=== PATIENT | male | born 1945 | race Caucasian/White ===

== ENCOUNTER 2018-05-31 09:59 | Day surgery (SDC) | payer MEDICARE, OTHER ==
[2018-05-30 09:48] VITALS: BMI 31.5
[~2018-05-31 09:59] MED LIST: HYDROmorphone 0.5 MG/0.5 ML SYRINGE IVP PRN
[2018-05-31] MEDS ORDERED: LACTATED RINGERS 1,000 ML IV SCH (10:00)
[2018-05-31 10:42] VITALS: TEMP 97.8
[2018-05-31] MEDS ORDERED: LIDOCAINE 1% 20 ML VIAL (10MG/ML) FOR IV START INTRADERMA ONE (10:42)
[2018-05-31] MEDS ORDERED: LIDOCAINE 1% INJ 10MG/ML (20 ML MDV) ONE (11:44)
[2018-05-31] MEDS ORDERED: PROPOFOL 10 MG/ML 20 ML VIAL IV ONE (11:44)
--- NOTE | 2018-05-31 11:57 | P.PCN ---
Date of Procedure: 05/31/18 Procedure(s) Performed: BRIEF HISTORY: Patient is a 73-year-old, pleasant, male, scheduled for an upper endoscopy with a possible dilation as a part of value should of progressive dysphagia to solids for the last 2 years duration. He lost 60 pounds since onset of the symptoms. Recent barium esophagogram showed evidence of distal esophageal stricture.. PROCEDURE PERFORMED: Esophagogastroduodenoscopy with biopsy and balloon dilation. PREOPERATIVE DIAGNOSIS: Progressive dysphagia to solids of 2 years duration. IV sedation per anesthesia. PROCEDURE: After informed consent was obtained, the patient was brought into the endoscopy unit. IV sedation was administered by Anesthesia under continuous monitoring. Initially the Olympus GIF-140 video endoscope was inserted into the mouth. Esophagus intubated without any difficulty. It was gradually advanced into the stomach and duodenum and carefully examined. The bulb and the second part of the duodenum appeared normal. The scope at this time was withdrawn to the stomach, adequately insufflated with air, and upon careful examination, mucosa of the antrum, body, cardia and the fundus appeared normal. The scope was then withdrawn into the esophagus. The GE junction was located at 39 cm from the incisors. There was a distal esophageal stricture identified. This was dilated using 12-13.5 mm TTS balloon for 1 minute. Following this there was some mucosal oozing identified and hence further dilation was not performed. There was thickening of mucosal folds in the mid and distal esophagus and multiple biopsies were done to rule out years of age esophagitis. Rest of the esophagus appeared normal and the patient tolerated the procedure well. The esophagus appeared normal. There were no erosions or ulcerations seen and the patient tolerated the procedure well. IMPRESSION: 1. Distal esophageal stricture status post balloon dilation using 12 and 13.5 mm TTS balloon as described above. 2. Thickened distal esophageal folds status post biopsy to rule out eosinophilic esophagitis. RECOMMENDATIONS: The findings of this examination were discussed with the patient as well as his family. He was advised to be on a clear liquid diet. He will be started on Prilosec 20 mg daily. He'll be seen in the office in 4 weeks..
[2018-05-31 12:35] VITALS: BP 140/78; PULSE 82; RESP 18
== END 2018-05-31 12:45 | disposition home or self-care (01) ==
LOC: ORWHC2ENDO 09:59
PROVIDERS: ATTEND Internal Medicine Gastroenterology
DX: K22.2 Esophageal obstruction (principal); K20.0 Eosinophilic esophagitis; Z79.1 Long term (current) use of non-steroidal anti-inflammatories (NSAID); Z79.82 Long term (current) use of aspirin; G47.33 Obstructive sleep apnea (adult) (pediatric); Z87.891 Personal history of nicotine dependence
CPT/HCPCS: 88305; 43239; 43249; J2001; J2704; C1726

== ENCOUNTER 2020-01-25 11:06 | Day surgery (SDC) | payer MEDICARE, OTHER ==
[2020-01-23 13:24] VITALS: BMI 32.1
[~2020-01-25 11:06] MED LIST changes: -HYDROmorphone 0.5 MG/0.5 ML SYRINGE IVP PRN; +LACTATED RINGERS 1,000 ML IV SCH; +LIDOCAINE 1% (10MG/ML) FOR IV START INTRADERMA PRN
[2020-01-25 12:05] VITALS: TEMP 98
[2020-01-25] MEDS ORDERED: PROPOFOL 10 MG/ML 20 ML VIAL IV ONE (12:34)
[2020-01-25] MEDS ORDERED: LIDOCAINE 1% INJ 10MG/ML (20 ML MDV) ONE (12:34)
[2020-01-25] MEDS ORDERED: IV FLUID CONTINUATION 1,000 ML IV ONE (12:42)
--- NOTE | 2020-01-25 12:49 | P.PCN ---
Date of Procedure: 01/25/20 Procedure(s) Performed: BRIEF HISTORY: Patient is a 74-year-old, pleasant, male scheduled for an upper endoscopy as a part of evaluation of progressive dysphagia to solids for the last few months duration. He did have an upper endoscopy with dilation performed in 2018 and was noted to have a distal esophageal stricture.. PROCEDURE PERFORMED: Esophagogastroduodenoscopy With dilation PREOPERATIVE DIAGNOSIS: Progressive dysphagia to solids/history of esophageal stricture IV sedation per anesthesia. PROCEDURE: After informed consent was obtained, the patient was brought into the endoscopy unit. IV sedation was administered by Anesthesia under continuous monitoring. Initially the Olympus GIF-140 video endoscope was inserted into the mouth. Esophagus intubated without any difficulty. It was gradually advanced into the stomach and duodenum and carefully examined. The bulb and the second part of the duodenum appeared normal. The scope at this time was withdrawn to the stomach, adequately insufflated with air, and upon careful examination, mucosa of the antrum, body, cardia and the fundus appeared normal. The scope was then withdrawn into the esophagus. Small sliding type hiatal hernia noted. The GE junction was located at 39 cm from the incisors. There was a distal esophageal Schatzki's ring identified and this was dilated using 15 and 16.5 mm TTS balloon for 30 seconds. At this time there was some brisk oozing identified and further dilation was not performed. The rest of the esophagus appeared normal. There were no erosions or ulcerations seen and the patient tolerated the procedure well. IMPRESSION: 1. Distal esophageal Schatzki's ring status post balloon dilation using 15 and 16.5 mm TTS balloon as described above. 2. Small hiatal hernia RECOMMENDATIONS: The findings of this examination were discussed with the patient as well as his family. He was advised to be remain on a clear liquid diet for lunch today. Continue with Prilosec 20 mg daily and follow antireflux measures..
[2020-01-25 13:09] VITALS: BP 130/78; PULSE 78; RESP 18
== END 2020-01-25 13:18 | disposition home or self-care (01) ==
LOC: ORWHC2ENDO 11:06
PROVIDERS: ATTEND Internal Medicine Gastroenterology
DX: K22.2 Esophageal obstruction (principal); K44.9 Diaphragmatic hernia without obstruction or gangrene; K21.9 Gastro-esophageal reflux disease without esophagitis; G47.33 Obstructive sleep apnea (adult) (pediatric); Z99.89 Dependence on other enabling machines and devices; Z79.82 Long term (current) use of aspirin; Z79.899 Other long term (current) drug therapy; Z79.1 Long term (current) use of non-steroidal anti-inflammatories (NSAID)
CPT/HCPCS: 43249; J2001; J2704; C1726

== ENCOUNTER 2024-07-17 14:17 | Inpatient (IN) | payer MEDICARE, OTHER ==
--- NOTE | 2024-07-17 14:49 | XR ---
EXAMINATION TYPE: XR chest 1V DATE OF EXAM: 07/17/2024 2:45 PM COMPARISON: None TECHNIQUE: XR chest 1V Frontal view of the chest. CLINICAL INDICATION:Male, 79 years old with history of L HIP FX PRE OP; FINDINGS: Lungs/Pleura: There is no evidence of pleural effusion, focal consolidation, or pneumothorax. Inters titial prominence. Pulmonary vascularity: Unremarkable. Heart/mediastinum: Cardiomediastinal silhouette is unremarkable. Musculoskeletal: No acute osseous pathology. IMPRESSION: No acute cardiopulmonary disease/process. [facility], , 07/17/2024 2:47 PM
--- NOTE | 2024-07-17 14:50 | ED ---
Fall HPI - General Chief Complaint: Fall Stated Complaint: Fall-Hip Injury Time Seen by Provider: 07/17/24 14:19 Source: patient, EMS, RN notes reviewed Mode of arrival: EMS Limitations: physical limitation - History of Present Illness Initial Comments: 79-year-old male presents emergency department chief complaint of trip and fall. Patient presents via EMS he states he tripped going into his house from the garage falling onto his left side he complains of left hip pain no head injury no loss conscious denies any blood thinners. Patient states he had knee surgery 10 years ago does not see that current orthopedic surgeon. Patient denies any other associated symptoms. - Related Data Home Medications Medication Instructions Recorded Confirmed Aspirin 81 mg PO DAILY 10/21/14 07/17/24 Naproxen Sodium [Aleve] 220 mg PO BID PRN 05/30/18 07/17/24 Aspirin 325 mg PO BID PRN 01/23/20 07/17/24 lisinopriL [Zestril] 10 mg PO DAILY 07/17/24 07/17/24 Allergies Allergy/AdvReac Type Severity Reaction Status Date / Time No Known Allergies Allergy Verified 07/17/24 15:57 Review of Systems ROS Statement: Those systems with pertinent positive or pertinent negative responses have been documented in the HPI. ROS Other: All systems not noted in ROS Statement are negative. Past Medical History Past Medical History: GERD/Reflux, Sleep Apnea/CPAP/BIPAP Additional Past Medical History / Comment(s): Dysphagia. Hx CPAP use in past, none after wgt loss. History of Any Multi-Drug Resistant Organisms: None Reported Past Surgical History: Tonsillectomy Additional Past Surgical History / Comment(s): Rt hand surgery on little finger. Colonoscopy, EGD w/ dilation. Past Anesthesia/Blood Transfusion Reactions: No Reported Reaction Past Psychological History: No Psychological Hx Reported Past Alcohol Use History: Rare Past Drug Use History: None Reported - Past Family History Mother Family Medical History: No Reported History General Exam Limitations: physical limitation General appearance: alert, in no apparent distress Head exam: Present: atraumatic, normocephalic, normal inspection Respiratory exam: Present: normal lung sounds bilaterally. Absent: respiratory distress, wheezes, rales, rhonchi, stridor Cardiovascular Exam: Present: regular rate, normal rhythm, normal heart sounds. Absent: systolic murmur, diastolic murmur, rubs, gallop, clicks Extremities exam: Present: other (Tenderness to left hip, limited range of motion neurovascular intact external rotation) Neurological exam: Present: alert, oriented X3, CN II-XII intact, reflexes normal. Absent: motor sensory deficit Course Vital Signs 07/17/24 14:18 Temperature 97.5 F L Pulse Rate 86 Respiratory 18 Rate Blood Pressure 147/80 O2 Sat by Pulse 99 Oximetry Medical Decision Making - Medical Decision Making Was pt. sent in by a medical professional or institution (SHARMILA Norman, ALTERNATIVE DISPUTE RESOLUTION MEDIATOR, urgent care, hospital, or [facility]...) When possible be specific @ -No Did you speak to anyone other than the patient for history (EMS, parent, family, police, friend...)? What history was obtained from this source @ -No Did you review nursing and triage notes (agree or disagree)? Why? @ -I reviewed and agree with nursing and triage notes Were old charts reviewed (outside hosp., previous admission, EMS record, old EKG, old radiological studies, urgent care reports/EKG's, [facility] records)? Report findings @ -No old charts were reviewed Differential Diagnosis (chest pain, altered mental status, abdominal pain women, abdominal pain men, vaginal bleeding, weakness, fever, dyspnea, syncope, headache, dizziness, GI bleed, back pain, seizure, CVA, palpatations, mental health, musculoskeletal)? @ -[Fall, hip contusion, hip fracture EKG interpreted by me (3pts min.). @ -None X-rays interpreted by me (1pt min.). @ -31 view chest x-ray shows no acute cardiopulmonary process X-ray left hip with AP pelvis shows impacted neck fracture CT interpreted by me (1pt min.). @ -None done U/S interpreted by me (1pt. min.). @ -None done What testing was considered but not performed or refused? (CT, X-rays, U/S, labs)? Why? @ -None What meds were considered but not given or refused? Why? @ -None Did you discuss the management of the patient with other professionals (professionals i.e. SHARMILA Norman, ALTERNATIVE DISPUTE RESOLUTION MEDIATOR, lab, RT, psych nurse, public health social worker, prop cutter, teacher, press officer, employment case manager)? Give summary @ -Dr. Fitzgerald for admission Was smoking cessation discussed for >3mins.? @ -No Was critical care preformed (if so, how long)? @ -No Were there social determinants of health that impacted care today? How? (Homelessness, low income, unemployed, alcoholism, drug addiction, transportation, low edu. Level, literacy, decrease access to med. care, skilled nursing, rehab)? @ -No Was there de-escalation of care discussed even if they declined (Discuss DNR or withdrawal of care, Hospice)? DNR status @ -No What co-morbidities impacted this encounter? (DM, HTN, Smoking, COPD, CAD, Cancer, CVA, ARF, Chemo, Hep., AIDS, mental health diagnosis, sleep apnea, m orbid obesity)? @ -None Was patient admitted / discharged? Hospital course, mention meds given and r oute, prescriptions, significant lab abnormalities, going to OR and other pertinent info. @ -Admitted patient presented after a fall trip and fall going into the garage. Patient has left hip fracture admitted with medicine for surgical clearance. Undiagnosed new problem with uncertain prognosis? @ -No Drug Therapy requiring intensive monitoring for toxicity (Heparin, Nitro, Insulin, Cardizem)? @ -No Were any procedures done? @ -No Diagnosis/symptom? @ -Fall, hip hip fracture Acute, or Chronic, or Acute on Chronic? @ -Acute Uncomplicated (without systemic symptoms) or Complicated (systemic symptoms)? @ -Uncomplicated Side effects of treatment? @ -No Exacerbation, Progression, or Severe Exacerbation? @ -No Poses a threat to life or bodily function? How? (Chest pain, [place], [place], pneumonia, PE, COPD, DKA, ARF, appy, cholecystitis, CVA, Diverticulitis, Homicidal, Suicidal, threat to staff... and all critical care pts) @Yes surgical risk - Lab Data Result diagrams: 07/17/24 15:35 - EKG Data -: EKG Interpreted by Me EKG Comments: EKG performed at 16: 08 sinus rhythm rate 98 NJ 153 QRS 85 QT/QTc 327/382 Disposition Clinical Impression: Fall, Closed left hip fracture Disposition: ADMITTED IP TO THIS [facility] Condition: Fair Time of Disposition: 15:00
--- NOTE | 2024-07-17 14:52 | XR ---
EXAMINATION TYPE: XR Hip LT and AP Pelvis DATE OF EXAM: 07/17/2024 2:45 PM INDICATION: Patient age:Male; 79 years old; Reason for study: pain; PHH. COMPARISON: None. TECHNIQUE: The left hip was examined in the frontal and lateral projections and a AP pelvis. FINDINGS: Acute moderately displaced left femoral neck fracture with shortening. Multilevel degenerat adriana changes of the lumbar spine. No significant soft tissue swelling. Pelvic phleboliths. IMPRESSION: Acute moderately displaced left femoral neck fracture with shortening. [facility], , 07/17/2024 2:49 PM
[2024-07-17] MEDS ORDERED: NALOXONE 0.4 MG/ML 1 ML VIAL IV PRN (15:01)
[2024-07-17] MEDS ORDERED: ONDANSETRON 4 MG/2 ML VIAL IVP PRN (15:01)
[2024-07-17 15:46] LABS: Basophils % (A) 0 %; Eosinophils # (A) 0.1 k/uL (0-0.7); Eosinophils % (A) 1 %; HCT 42.5 % (39.0-53.0); HGB 14.2 gm/dL (13.0-17.5); Lymphocytes # (A) 0.9 k/uL (1.0-4.8); Lymphocytes % (A) 9 %; MCH 29.2 pg (25.0-35.0); MCHC 33.5 g/dL (31.0-37.0); MCV 87.3 fL (80.0-100.0); Mean Platelet Volume 6.5; Monocytes # (A) 0.5 k/uL (0-1.0); Monocytes % (A) 5 %; Neutrophils # (A) 8.4 k/uL (1.3-7.7); Neutrophils % (A) 84 %; Platelet Count 217 k/uL (150-450); RBC 4.87 m/uL (4.30-5.90)
[2024-07-17 15:56] LABS: Partial Thromboplastin Time 24.7 sec (22.0-30.0); Prothrombin Time 11.2 sec (10.0-12.5)
[2024-07-17 16:42] LABS: ALT 19 U/L (4-49); African American GFR (CKD) >90 (>60 ml/min/1.73 sqM); Albumin 3.9 g/dL (3.5-5.0); Albumin/Globulin Ratio 1.5; Anion Gap 7 mmol/L; Blood Urea Nitrogen 8 mg/dL (9-20); Calcium 8.6 mg/dL (8.4-10.2); Carbon Dioxide 24 mmol/L (22-30); Chloride 93 mmol/L (98-107); Globulin 2.6 g/dL; Glucose 93 mg/dL (74-99); Non-African American GFR(CKD) >90 (>60 ml/min/1.73 sqM); Sodium 124 mmol/L (137-145); Total Bilirubin 1.1 mg/dL (0.2-1.3); Total Protein 6.5 g/dL (6.3-8.2)
[2024-07-17 16:45] LABS: AST 34 U/L (17-59); Alkaline Phosphatase 88 U/L (38-126); Potassium 4.5 mmol/L (3.5-5.1)
--- NOTE | 2024-07-17 20:24 | P.CONS ---
History of Present Illness - Reason for Consult Consult date: 07/17/24 Medical management Requesting physician: Jeff Fitzgerald - Chief Complaint Left femur fracture - History of Present Illness This is a very pleasant 79-year-old patient, follows Dr. Esther Pendleton. Chronic stable medical condition include hypertension, osteoarthritis. Patient had a prior history of esophageal stricture. It was dilated about [address] Dao. Of late patient is noticing some food sticking specially bread. Wants to go for dilatation again. In the past she has had obstructive sleep apnea did use CPAP. Has lost weight. No need for the same. Denies any cardiac history. Otherwise rather active. Patient occurred trip and fall with pain in the left hip area. Review of systems: GEN.: None EYES: None HEENT: None NECK: None RESPIRATORY: None CARDIOVASCULAR: None GASTROINTESTINAL: Sometimes food getting stuck with bread etc.] GENITOURINARY: None MUSCULOSKELETAL: Joint pains especially left hip LYMPHATICS: None Neurological none Social history: . 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 Smoked in the remote past for about 10 years. Alcohol occasionally. Physical examination: VITAL SIGNS: 98.3, 107, 19, 175 x 101, 96% room air GENERAL: BMI 29.8, reclining bed awake comfortable. EYES: Pupils equal. Conjunctiva melony l. HEENT: External appearance of nose and ears normal, oral cavity grossly normal. NECK: JVD not raised; masses not palpable. HEART: First and second heart sounds are normal; no edema. LUNGS: Respiratory rate normal; clear to auscultation. ABDOMEN: Soft, nontender, liver spleen not palpable, no masses palpable. PSYCH: Alert and oriented x3; mood and affect melony l. MUSCULOSKELETAL:No Clubbing/cyanosis;muscles-grossly intact. OA. Limited range of motion left hip left leg shortened and rotated externally NEUROLOGICAL: Cranial nerves grossly intact; no facial asymmetry, power and sensation grossly intact. LYMPHATICS: No lymph nodes palpable in the axilla and neck INVESTIGATIONS, reviewed in the clinical context: HEMATOLOGICAL: None PSYCHIATRY: None NEUROLOGICAL: None July 17: White count 10 hemoglobin 14.2 platelets 217 sodium 124 potassium 4.5 BUN 8 creatinine 0.6 EKG tracing personally reviewed by me-normal sinus rhythm Chest x-ray film personally reviewed by me-some cardiomegaly. Left hip x-ray: Moderately displaced left femoral neck fracture with shortening Assessment plan: -Acute moderately displaced left femoral neck fracture secondary to fall with shortening. Rest. For surgical intervention tomorrow. Pain control -Primary osteoarthritis Pain medication as needed -Severe hyponatremia. Euvolemic Check serum osmolality. Fluid restriction 1200 cc a day. Avoid tea coffee and free water. May have thick soups chicken broth etc. Repeat labs in the morning -Essential hypertension. Blood pressure currently elevated likely from pain. Lisinopril hydrochlorothiazide 05/12.51 tablet twice daily. And pain control -Probable esophageal stricture. Patient is a Celeste will dilatation done about [address] Jailene Dao. Now again started to find food like bread getting stuck. Will need outpatient follow-up for the same. -Perioperative cardiovascular risk assessment. Patient normally is a fairly active. Has no cardiac or respiratory symptoms. Patient has a low to moderate risk for surgery. With no contraindications. Stable otherwise for surgical intervention Care was discussed with patient and family at the bedside. Thank you Dr. Fitzgerald Past Medical History Past Medical History: GERD/Reflux, Sleep Apnea/CPAP/BIPAP Additional Past Medical History / Comment(s): Dysphagia. Hx CPAP use in past, none after wgt loss. History of Any Multi-Drug Resistant Organisms: None Reported Past Surgical History: Tonsillectomy Additional Past Surgical History / Comment(s): Rt hand surgery on little finger. Colonoscopy, EGD w/ dilation. Past Anesthesia/Blood Transfusion Reactions: No Reported Reaction Past Psychological History: No Psychological Hx Reported Past Alcohol Use History: Rare Past Drug Use History: None Reported - Past Family History Mother Family Medical History: No Reported History Medications and Allergies Home Medications Medication Instructions Recorded Confirmed Type Aspirin 81 mg PO DAILY 10/21/14 07/17/24 History Naproxen Sodium [Aleve] 220 mg PO BID PRN 05/30/18 07/17/24 History Aspirin 325 mg PO BID PRN 01/23/20 07/17/24 History lisinopriL [Zestril] 10 mg PO DAILY 07/17/24 07/17/24 History Allergies Allergy/AdvReac Type Severity Reaction Status Date / Time No Known Allergies Allergy Verified 07/17/24 15:57 Physical Exam Vitals: Vital Signs Temp Pulse Pulse Resp BP BP BP 07/17/24 19:07 98.3 F 107 H 19 175/101 07/17/24 18:55 18 151/97 07/17/24 17:46 98.3 F 103 H 18 176/95 07/17/24 17:07 94 18 159/94 07/17/24 14:18 97.5 F L 86 18 147/80 Pulse Ox 07/17/24 19:07 96 07/17/24 18:55 97 07/17/24 17:46 99 07/17/24 17:07 99 07/17/24 14:18 99 Intake and Output 07/17/24 07/17/24 07/17/24 06:59 14:59 22:59 Output Total 0 Balance 0 Output: Urine 0 Other: Weight 97.069 kg Results CBC & Chem 7: 07/17/24 15:35 07/17/24 16:27 Labs: Abnormal Lab Results - Last 24 Hours (Table) 07/17/24 07/17/24 Range/Units 15:35 16:27 Neutrophils # 8.4 H (1.3-7.7) k/uL Lymphocytes # 0.9 L (1.0-4.8) k/uL Sodium 124 L (137-145) mmol/L Chloride 93 L (98-107) mmol/L BUN 8 L (9-20) mg/dL Creatinine 0.60 L (0.66-1.25) mg/dL
[2024-07-17] MEDS: LISINOPRIL-HCTZ 10-12.5 MG 1 EACH TAB PO SCH (21:19)
[2024-07-17] MEDS: ENOXAPARIN 40 MG/0.4 ML SYRINGE SQ SCH (21:19)
[2024-07-17 22:47] LABS: Appearance,Urine Clear (Clear); Bilirubin,Urine Negative (Negative); Blood,Urine Negative (Negative); Color,Urine Colorless; Glucose,Urine (UA) Negative (Negative); Ketones,Urine Negative (Negative); Leukocyte Esterase,Urine Negative (Negative); Nitrite,Urine Negative (Negative); Protein,Urine Negative (Negative); Urobilinogen,Urine <2.0 mg/dL (<2.0)
[2024-07-18] MEDS: HYDROmorphone 0.5 MG/0.5 ML SYRINGE IVP PRN (02:57)
[2024-07-18 06:05] LABS: African American GFR (CKD) >90 (>60 ml/min/1.73 sqM); Anion Gap 7 mmol/L; Blood Urea Nitrogen 10 mg/dL (9-20); Calcium 8.8 mg/dL (8.4-10.2); Carbon Dioxide 22 mmol/L (22-30); Chloride 91 mmol/L (98-107); Glucose 109 mg/dL (74-99); Non-African American GFR(CKD) >90 (>60 ml/min/1.73 sqM); Potassium 4.2 mmol/L (3.5-5.1); Sodium 120 mmol/L (137-145)
[2024-07-18] MEDS ORDERED: TRANEXAMIC 1,000 MG/100ML-NACL 1,000 MG in SALINE 1 100ML.BAG IVPB PRN (06:11)
[2024-07-18] MEDS ORDERED: ACETAMINOPHEN TAB 500 MG TAB PO PRN (06:11)
[2024-07-18] MEDS ORDERED: SENNOSIDES 8.6 MG TAB PO PRN (06:15)
[2024-07-18] MEDS ORDERED: HYDROcodone/APAP 10-325MG 1 EACH TAB PO PRN (06:15)
[2024-07-18 07:15] LABS: Basophils % (A) 0 %; Eosinophils % (A) 0 %; Lymphocytes # (A) 0.9 k/uL (1.0-4.8); Lymphocytes % (A) 7 %; MCH 29.7 pg (25.0-35.0); MCV 87.4 fL (80.0-100.0); Mean Platelet Volume 6.7; Monocytes # (A) 0.9 k/uL (0-1.0); Monocytes % (A) 7 %; Neutrophils % (A) 85 %; Platelet Count 211 k/uL (150-450); RBC 5.03 m/uL (4.30-5.90); WBC 12.9 k/uL (3.8-10.6)
[2024-07-18 07:18] LABS: INR 1.1 (<1.2)
[2024-07-18 07:24] LABS: African American GFR (CKD) >90 (>60 ml/min/1.73 sqM); Anion Gap 5 mmol/L; Blood Urea Nitrogen 12 mg/dL (9-20); Calcium 8.9 mg/dL (8.4-10.2); Carbon Dioxide 25 mmol/L (22-30); Chloride 90 mmol/L (98-107); Glucose 104 mg/dL (74-99); Non-African American GFR(CKD) >90 (>60 ml/min/1.73 sqM); Potassium 4.4 mmol/L (3.5-5.1); Sodium 120 mmol/L (137-145)
[2024-07-18] MEDS: CHOLECALCIFEROL 125 MCG (5000 IU) TABLET PO SCH (07:40)
[2024-07-18] MEDS: LACTATED RINGERS 1,000 ML IV SCH (07:40)
[2024-07-18] MEDS: DOCUSATE 100 MG CAP PO SCH (07:40)
[2024-07-18] MEDS: polyethylene glycoL 3350 17 GM POWD.PACK PO SCH (07:40)
--- NOTE | 2024-07-18 08:07 | P.HPOR ---
History of Present Illness H&P Date: 07/18/24 Chief Complaint: LEFT HIP PAIN 79-year-old male presents to the emergency arm and after fall from standing at home with complaints of left hip pain and inability to ambulate. The patient states that he was at home sustained a fall onto his left hip he states that the fall seemed insignificant however he had severe pain afterwards was unable to ambulate because EMS and brought to emergency department. This found a left hip fracture. He was admitted to the service. The patient states pain is left hip as well as spasming of his left leg. He denies any numbness or tingling. Denies any fevers chills shortness breath or chest pain. Denies any blunt head trauma or loss of consciousness with the fall. He simply tripped and fell. Family ambulates on his own. He is relatively active and plays bridge twice a week take care of his . He states he had no previous hip pain in this hip. He denies any other symptoms at this time. He denies any other pain in any other joints. Review of Systems 16 points review of systems completed and as stated in HPI, all other systems reviewed are negative. Past Medical History Past Medical History: GERD/Reflux, Sleep Apnea/CPAP/BIPAP Additional Past Medical History / Comment(s): Dysphagia. Hx CPAP use in past, none after weight loss. History of Any Multi-Drug Resistant Organisms: None Reported Past Surgical History: Tonsillectomy Additional Past Surgical History / Comment(s): Rt hand surgery on little finger. Colonoscopy, EGD w/ dilation. Past Anesthesia/Blood Transfusion Reactions: No Reported Reaction Past Psychological History: No Psychological Hx Reported Smoking Status: Former smoker Past Alcohol Use History: Rare Additional Past Alcohol Use History / Comment(s): Smoked 10 years, quit est Past Drug Use History: None Reported - Past Family History Mother Family Medical History: No Reported History Medications and Allergies Home Medications Medication Instructions Recorded Confirmed Type Aspirin 81 mg PO DAILY 10/21/14 07/17/24 History Naproxen Sodium [Aleve] 220 mg PO BID PRN 05/30/18 07/17/24 History Aspirin 325 mg PO BID PRN 01/23/20 07/17/24 History lisinopriL [Zestril] 10 mg PO DAILY 07/17/24 07/17/24 History Allergies Allergy/AdvReac Type Severity Reaction Status Date / Time No Known Allergies Allergy Verified 07/17/24 15:57 Physical Examination Osteopathic Statement: *. No significant issues noted on an osteopathic structural exam other than those noted in the History and Physical/Consult. Physical Exam: -Patient is alert and oriented 3 appears well-nourished well-hydrated is in no acute distress. They do not appear septic. -There is TTP about the left hip with logrolling with -Upper extremities show [5] out of 5 strength in all major muscle groups. -Lower extremities with [5] out of 5 strength in all major muscle groups left lower extremity where he has pain with hip flexion and extension unable to do it. However he does have good dorsal flexion plantarflexion EHL FHL -There is [FROM] that is [painless] of the b/l UE and LE in all major joints. Positive logroll on the left causes pain and limited range of motion on the left hip secondary to fracture -They are intact to light touch sensation in C5 to T1 and L2 to S1 nerve distribution. -DTR [2]/4 all upper and lower extremities -Patient has palpable distal pulses all 4 ext -Compartments are soft and compressible. -Patient shows a negative Franc's [-Neg Hoffmans b/l] [-Neg Clonus b/l] [-Neg babinski b/l] Cranial nerves II through XII are grossly intact. Results AP pelvis and left hip demonstrate left femoral neck fracture is completely displaced as well as rotated. AP pelvis demonstrates no other pelvic fractures congruent pelvis and right hip. Other osseous anomalies noted. - Labs Labs: Abnormal Lab Results - Last 24 Hours (Table) 07/17/24 07/17/24 07/17/24 Range/Units 15:35 16:27 16:27 WBC (3.8-10.6) k/uL Neutrophils # 8.4 H (1.3-7.7) k/uL Lymphocytes # 0.9 L (1.0-4.8) k/uL Sodium 124 L (137-145) mmol/L Chloride 93 L (98-107) mmol/L BUN 8 L (9-20) mg/dL Creatinine 0.60 L (0.66-1.25) mg/dL Glucose (74-99) mg/dL Osmolality 266 L (275-295) mOsm/kg 07/18/24 07/18/24 07/18/24 Range/Units 03:47 06:26 06:26 WBC 12.9 H (3.8-10.6) k/uL Neutrophils # 11.0 H (1.3-7.7) k/uL Lymphocytes # 0.9 L (1.0-4.8) k/uL Sodium 120 L 120 L (137-145) mmol/L Chloride 91 L 90 L (98-107) mmol/L BUN (9-20) mg/dL Creatinine 0.63 L 0.62 L (0.66-1.25) mg/dL Glucose 109 H 104 H (74-99) mg/dL Osmolality (275-295) mOsm/kg H & H 07/17/24 07/18/24 Range/Units 15:35 06:26 Hgb 14.2 15.0 (13.0-17.5) gm/dL Hct 42.5 44.0 (39.0-53.0) % Coagulation 07/17/24 07/18/24 Range/Units 15:35 06:26 INR 1.0 1.1 (<1.2) Result Diagrams: 07/18/24 06:26 07/18/24 06:26 Assessment and Plan Assessment: 79-year-old male left femoral neck fracture completely displaced Status post fall from standing Plan: -NPO -NWB LLE -ROBAXIN FOR MUSCLE SPASMS -PAIN CONTROL NEEDED -MECH DVT PPX -PLAN FOR OR TODAY AFTER OFFICE 6 PM Orthopedic Surgery Risk Review Abraham Castro is a 79-year-old male presenting for evaluation of sudden onset left hip pain, inability to ambulate after from standing. It was my pleasure to have seen and examined Abraham. In our visit today we have had a chance to go over subjective complaints, physical examination findings and treatments including the natural course history without intervention and various interventional options. His imaging demonstrates left femoral neck fracture complete and displaced. On physical exam, Abraham demonstrates pain with motion of left lower extremity, which is NV intact at this time. I have explained to the patient that this fracture needs stabilization. Based on the patients imaging, physical exam, and the rapid progression and disabling nature of her symptoms, at this time I recommend surgery in the form or a: Left hip hemiarthroplasty versus total hip arthroplasty I discussed the risk and b enefits of this procedure at length with Abraham. Questions were invited and answered, and the patient wishes to proceed as outlined below. Currently, I am recommendin. Left hip hemiarthroplasty versus total hip arthroplasty 2. Review of surgical risks and benefits as well as an educational packet on the proposed surgical procedure. Risks: All surgical procedures come with inherent risks, including those related to positioning, anesthesia, intraoperative findings, and postoperative complications. It is important to understand that surgery does not come with any guarantee of a successful outcome as complications and adverse events are always possible. The patient was given a handout discussing the surgical procedure and risks associated with the intervention, both of which were discussed with the patient. These risks include but are not limited to the following: - Experiencing same, different or even worse symptoms compared to before surgery. - Requiring further surgery or other forms of treatment presently or at some time in the future . - On an extreme but fortunately relatively rare basis severe complication such as blindness, stroke, heart attack, temporary and/or permanent nerve injury, paralysis, coma, or may occur, sometimes without known explanation. - Surgical complications may include but are not limited to risk of infection, fluid accumulation in the surgical dissection site, including a seroma or hematoma, that requires additional surgery, wound drainage, bleeding, new numbness or weakness, vision changes/loss, spinal fluid leakage, non-healing and/or infected incision, headaches, difficulty or inability to swallow, hoarseness, hemopneumothorax, pneumothorax, injury to nerves, spinal cord, blood vessels, lymphatics or other vital organs (i.e., bowel injury, injury to the great vessels); heterotopic bone formation; complications related to the hardware such as screws, rods, including misplaced hardware, device failure, hardware fracture/breakage, or hardware loosening; retained surgical instrumentations or devices and the need for further surgery. - Medical risks of the planned surgery include but are not limited to generalized Infections to the whole body or local areas outside of the surgical site (sepsis), heart attack, bleeding, anaphylaxis, meningitis, seizure, epilepsy, hearing loss, burn garcia, laceration of the head or other areas of the body, bruising, hypersensitivity of the skin, bladder over distension; allergic reaction; shoulder injury related to positioning; fat, blood and air clots to other areas of the body like heart, lungs, brain; failure of internal organs such as lungs, kidneys, liver and excessive bleeding. If blood transfusions are necessary, note that transfusions may cause intolerance reactions such as anaphylaxis or other complex reactions. Despite best efforts, the results of surgery might not heal in terms of bone, soft tissues such as skin, fascia, ligaments, and joints. [facility] has multiple operating rooms with single and overlapping rooms running daily. They currently function under the required guidelines as produced by the [facility] Finance Committee with regards to the overlapping rooms and will continue to comply with changes to this policy as they occur. The requirements include and are complied with as follows: (1) the critical portions of the overlapping rooms will not occur at the same time, (2) the attending physician will be physically present during the critical portions of the procedure and immediately available during the entire case, and (3) a back-up attending is designated should the primary attending not be immediately available. The patient has had a chance to review all the listed information, has been given print outs detailing this information, and has had all his/her questions answered to their satisfaction. It was my pleasure to have seen and examined Abraham Sarkar. In our visit today we have had a chance to go over my understanding of our patient's current condition, the natural course history without intervention and various interventional options. Questions were invited and answered, and the patient wishes to proceed as outlined above. I have seen and examined the patient for 25 minutes and we have spent more than 50% of the time in repeat and detailed counseling about the patient's condition, its natural course history with out and as much as can be predicted with surgery and re-review of various surgical treatment options. In conclusion, Abraham Sarkar requested we proceed with the above suggested surgery and are willing to accept risks and limitations of the suggested surgery as nature of the disease process and our best attempts at treatment for the condition. Thank you again for allowing us to be part of your patient's care. Please don't hesitate to contact me if you have any further questions. Signed and authenticated by: Jeff Fitzgerald DO [facility] [address] [facility], [address] [address]
[2024-07-18] MEDS: methocarbamoL 750 MG TAB PO SCH (10:13)
--- NOTE | 2024-07-18 12:16 | P.EN ---
hold surgery until pt seen by Nephrology and cleared. Nephrology informed
[2024-07-18] MEDS: TRANEXAMIC 1,000 MG/100ML-NACL 1,000 MG in SALINE 1 100ML.BAG IVPB ONE (13:32)
[2024-07-18] MEDS: SODIUM CHLORIDE 0.9% 1,000 ML IV SCH (13:33)
--- NOTE | 2024-07-18 13:57 | P.NPCON ---
History of Present Illness - Reason for Consult hyponatremia - History of Present Illness Reason for consultation: Hyponatremia History of present illness: Patient is a 79-year-old male seen in renal consultation for hyponatremia. Patient came to the hospital after he sustained a fall at home. Patient states he tripped in his garage. Patient developed left hip pain and was having a hard time ambulating. Patient was noted to have a left hip fracture. He was scheduled for surgery today but was canceled due to hyponatremia. Patient admits to taking Aleve 1-2 times weekly as needed. Additionally he also received hydrochlorothiazide this morning. He admits to drinking a 32 ounce jug of water daily along with 1 cup of tea at night and also a 20 ounce bottle of Diet Coke. Renal function is at baseline. Denies history of diabetes. Denies history of coronary artery disease. Denies personal history of malignancy. Denies gross hematuria or dysuria. He did vomit once last night which she a ttributes to the pain medication. Denies significant pain. Rates his overall pain as 4 out of 10. He is not on any IV fluids. Vital signs are stable. General: No acute distress. HEENT: Head exam is unremarkable. LUNGS: No audible rhonchi or wheezes. HEART: Rate and Rhythm are regular. ABDOMEN: Nontender. EXTREMITITES: No edema. Past Medical History Past Medical History: GERD/Reflux, Sleep Apnea/CPAP/BIPAP Additional Past Medical History / Comment(s): Dysphagia. Hx CPAP use in past, none after weight loss. History of Any Multi-Drug Resistant Organisms: None Reported Past Surgical History: Tonsillectomy Additional Past Surgical History / Comment(s): Rt hand surgery on little finger. Colonoscopy, EGD w/ dilation. Past Anesthesia/Blood Transfusion Reactions: No Reported Reaction Past Psychological History: No Psychological Hx Reported Smoking Status: Former smoker Past Alcohol Use History: Rare Additional Past Alcohol Use History / Comment(s): Smoked 10 years, quit est Past Drug Use History: None Reported - Past Family History Mother Family Medical History: No Reported History Medications and Allergies Home Medications Medication Instructions Recorded Confirmed Type Aspirin 81 mg PO DAILY 10/21/14 07/17/24 History Naproxen Sodium [Aleve] 220 mg PO BID PRN 05/30/18 07/17/24 History Aspirin 325 mg PO BID PRN 01/23/20 07/17/24 History lisinopriL [Zestril] 10 mg PO DAILY 07/17/24 07/17/24 History Allergies Allergy/AdvReac Type Severity Reaction Status Date / Time No Known Allergies Allergy Verified 07/17/24 15:57 Physical Exam Vitals: Vital Signs Temp Pulse Pulse Resp BP BP BP 07/18/24 02:13 98.5 F 111 H 20 169/91 07/17/24 19:07 98.3 F 107 H 19 175/101 07/17/24 18:55 18 151/97 07/17/24 17:46 98.3 F 103 H 18 176/95 07/17/24 17:07 94 18 159/94 07/17/24 14:18 97.5 F L 86 18 147/80 Pulse Ox 07/18/24 02:13 98 07/17/24 19:07 96 07/17/24 18:55 97 07/17/24 17:46 99 07/17/24 17:07 99 07/17/24 14:18 99 Intake and Output 07/17/24 07/18/24 07/18/24 22:59 06:59 14:59 Output Total 0 1400 Balance 0 -1400 Output: Urine 0 1400 Other: Voiding Method External Catheter External Catheter Weight 97.069 kg Results - Lab Results Most recent lab results Calcium 8.9 mg/dL (8.4-10.2) 07/18/24 06:26 07/18/24 06:26 07/18/24 06:26 Assessment and Plan Plan: Assessment: 1. Hyponatremia. Appears euvolemic. 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 Sodium levels was 124 on admission yesterday and is 120 today. 2. Status post fall with left hip fracture. 3. Benign hypertension. Plan: Stop thiazide diuretic. Avoid NSAIDs. Resume home dose lisinopril. Check bladder scan to rule out urinary retention. Check TSH, urine sodium and urine osmolality. Start normal saline at 75 cc an hour. Repeat sodium level this evening. Add fluid restriction. Thank you for the consultation. I will continue to follow the patient with you during his hospital stay.
[2024-07-18] MEDS: lisinopriL 10 MG TAB PO SCH ×2 (15:12→20:24)
--- NOTE | 2024-07-18 19:34 | P.PN ---
Progress Note - Text Progress Note Date: 07/18/24 - Chief Complaint Left femur fracture - History of Present Illness This is a very pleasant 79-year-old patient, follows Dr. Esther Pendleton. Chronic stable medical condition include hypertension, osteoarthritis. Patient had a prior history of esophageal stricture. It was dilated about [address] Dao. Of late patient is noticing some food sticking specially bread. Wants to go for dilatation again. In the past she has had obstructive sleep apnea did use CPAP. Has lost weight. No need for the same. Denies any cardiac history. Otherwise rather active. Patient occurred trip and fall with pain in the left hip area. July 18: Patient seen this afternoon. Daughter present. Patient does drink excessive water. Explaining his low sodium. He did so yesterday 2. This was discussed at length with the patient and daughter. Placed on fluid restriction. Serum muscularity came back low at 266. Fluid restriction 200 cc a day. I did inform Dr. Fitzgerald to hold off surgery today. Until cleared further by nep hrology. Active Medications Acetaminophen (Acetaminophen Tab 500 Mg Tab) 1,000 mg PO ONCE PRN PRN Reason: Pre-Op Stop: 07/19/24 00:13 Hydrocodone Bitart/Acetaminophen (Hydrocodone/Apap 5-325mg 1 Each Tab) 1 each PO Q4HR PRN PRN Reason: Moderate Pain (Scale 4 to 6) Hydrocodone Bitart/Acetaminophen (Hydrocodone/Apap 10-325mg 1 Each Tab) 1 each PO Q6H PRN PRN Reason: Pain Cholecalciferol (Cholecalciferol 125 Mcg (5000 Iu) Tablet) 125 mcg PO DAILY [facility] Last Admin: 07/18/24 07:40 Dose: Not Given Docusate Sodium (Docusate 100 Mg Cap) 100 mg PO BID [facility] Last Admin: 07/18/24 07:40 Dose: Not Given Enoxaparin Sodium (Enoxaparin 40 Mg/0.4 Ml Syringe) 40 mg SQ HS [facility] Last Admin: 07/17/24 21:19 Dose: 40 mg Hydromorphone HCl (Hydromorphone 0.5 Mg/0.5 Ml Syringe) 0.5 mg IVP Q3HR PRN PRN Reason: Moderate Pain (Scale 4 to 6) Last Admin: 07/18/24 13:58 Dose: 0.5 mg Tranexamic Acid/Sodium (Chloride 1,000 mg/ IV Solution) 100 mls @ 200 mls/hr IVPB ONCE PRN PRN Reason: Pre-Op Stop: 07/19/24 00:13 Lactated Ringer's (Lactated Ringers) 1,000 mls @ 20 mls/hr IV .Q24H [facility] Last Admin: 07/18/24 07:40 Dose: Not Given Sodium Chloride (Saline 0.9%) 1,000 mls @ 75 mls/hr IV .[id number] [facility] Last Admin: 07/18/24 13:33 Dose: 75 mls/hr Lisinopril (Lisinopril 10 Mg Tab) 10 mg PO DAILY [facility] Last Admin: 07/18/24 15:12 Dose: 10 mg Methocarbamol (Methocarbamol 750 Mg Tab) 750 mg PO QID [facility] Last Admin: 07/18/24 15:12 Dose: 750 mg Naloxone HCl (Naloxone 0.4 Mg/Ml 1 Ml Vial) 0.2 mg IV Q2M PRN PRN Reason: Opioid Reversal Ondansetron HCl (Ondansetron 4 Mg/2 Ml Vial) 4 mg IVP Q8HR PRN PRN Reason: Nausea And Vomiting Polyethylene Glycol (Polyethylene Glycol 3350 17 Gm Powd.Pack) 17 gm PO DAILY [facility] Last Admin: 07/18/24 07:40 Dose: Not Given Senna (Sennosides 8.6 Mg Tab) 8.6 mg PO BID PRN PRN Reason: Constipation Social history: . 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 Smoked in the remote past for about 10 years. Alcohol occasionally. Physical examination: VITAL SIGNS: 98.2, 95, 17, 139 x 69, 95% room air GENERAL: BMI 29.8, reclining bed awake EYES: Pupils equal. Conjunctiva melony l. HEENT: External appearance of nose and ears normal, oral cavity grossly normal. NECK: JVD not raised; masses not palpable. HEART: First and second heart sounds are normal; no edema. LUNGS: Respiratory rate normal; clear to auscultation. ABDOMEN: Soft, nontender, liver spleen not palpable, no masses palpable. PSYCH: Alert and oriented x3; mood and affect melony l. MUSCULOSKELETAL:No Clubbing/cyanosis;muscles-grossly intact. OA. Limited range of motion left hip left leg shortened and rotated externally INVESTIGATIONS, reviewed in the clinical context: July 18: White count 12.9 hemoglobin 15 platelets 211 sodium 120 potassium 4.4 BUN 12 creatinine 0.62 July 17: White count 10 hemoglobin 14.2 platelets 217 sodium 124 potassium 4.5 BUN 8 creatinine 0.6. Serum osmolality 266 EKG tracing personally reviewed by me-normal sinus rhythm Chest x-ray film personally reviewed by me-some cardiomegaly. Left hip x-ray: Moderately displaced left femoral neck fracture with shortening Assessment plan: -Acute moderately displaced left femoral neck fracture secondary to fall with shortening. Rest. Pending surgical intervention by Dr. Fitzgerald pain control -Primary osteoarthritis Pain medication as needed -Severe hyponatremia., Hypoosmolar from excessive fluid intake: Slow to respond . Fluid restriction 1200 cc a day. Avoid tea coffee and free water. May have thick soups chicken broth etc. Repeat labs in the morning Surgery postponed for now pending nephrology evaluation and clearance -Essential hypertension. Blood pressure currently elevated likely from pain. Increase lisinopril to 10 mg twice daily -Probable esophageal stricture. Patient is a Celeste will dilatation done about [address] Jailene Dao. Now again started to find food like bread getting stuck. Will need outpatient follow-up for the same. -Perioperative cardiovascular risk assessment. Patient normally is a fairly active. Has no cardiac or respiratory symptoms. Patient has a low to moderate risk for surgery. With no contraindications. Medical clearance pending nephrology evaluation Water intake was discussed at length with the patient daughter at the bedside. Also discussed with the nurse. Nephrology consulted. Adult Neuropsychologist to start the patient on normal saline. Thank you Dr. Fitzgerald Past Medical History Past Medical History: GERD/Reflux, Sleep Apnea/CPAP/BIPAP Additional Past Medical History / Comment(s): Dysphagia. Hx CPAP use in past, none after wgt loss. History of Any Multi-Drug Resistant Organisms: None Reported Past Surgical History: Tonsillectomy Additional Past Surgical History / Comment(s): Rt hand surgery on little finger. Colonoscopy, EGD w/ dilation. Past Anesthesia/Blood Transfusion Reactions: No Reported Reaction Past Psychological History: No Psychological Hx Reported Past Alcohol Use History: Rare Past Drug Use History: None Reported
[2024-07-18] MEDS ORDERED: CALCIUM CARBONATE 500 MG CHEWABLE PO PRN (19:54)
[2024-07-18] MEDS: TOLVAPTAN 15 MG TABLET PO ONE (20:24)
[2024-07-18] MEDS: FAMOTIDINE 20 MG TAB PO SCH (20:24)
[2024-07-19] MEDS: CALCIUM CARBONATE 500 MG CHEWABLE PO SCH (06:25)
[2024-07-19 08:45] LABS: HCT 39.8 % (39.6-50.0); MCHC 35.2 g/dL (32.0-37.0); MCV 82.6 FL (80.0-97.0); NRBC Per 100 WBC 0 X 10*3/uL (0.00-0.01); Platelet Count 199 X 10*3/uL (140-440); RBC 4.82 X 10*6/uL (4.40-5.60); RDW 12.9 % (11.5-14.5); WBC 12.58 X 10*3/uL (4.50-10.00)
[2024-07-19 08:46] LABS: Basophils # (A) 0.02 X 10*3/uL (0.00-0.10); Basophils % (A) 0.2 %; Eosinophils # (A) 0.03 X 10*3/uL (0.04-0.35); Eosinophils % (A) 0.2 %; Lymphocytes # (A) 0.84 X 10*3/uL (0.90-5.00); Lymphocytes % (A) 6.7 %; Monocytes # (A) 1.23 X 10*3/uL (0.20-1.00); Monocytes % (A) 9.8 %; Neutrophils # (A) 10.38 X 10*3/uL (1.80-7.70); Neutrophils % (A) 82.5 %
[2024-07-19 09:04] LABS: ALT 15 U/L (10-49); AST 25 U/L (14-35); Albumin 3.7 g/dL (3.8-4.9); Albumin/Globulin Ratio 1.61 Ratio (1.60-3.17); Alkaline Phosphatase 82 U/L (41-126); Blood Urea Nitrogen 11.7 mg/dL (9.0-27.0); Calcium 8.3 mg/dL (8.7-10.3); Carbon Dioxide 21.4 mmol/L (21.6-31.8); Chloride 88 mmol/L (96-109); Globulin 2.3 g/dL (1.6-3.3); Glucose 106 mg/dL (70-110); Magnesium 1.6 mg/dL (1.5-2.4); Potassium 4.1 mmol/L (3.5-5.5); Sodium 122 mmol/L (135-145); Total Bilirubin 1.6 mg/dL (0.3-1.2)
--- NOTE | 2024-07-19 10:45 | P.PN ---
Subjective Patient is seen in follow-up for hyponatremia. Has Brown catheter. Nonoliguric. Sodium level 122. Oral intake is good. No vomiting or diarrhea. Vital signs are stable. General: No acute distress. HEENT: Head exam is unremarkable. LUNGS: No audible rhonchi or wheezes. HEART: Rate and Rhythm are regular. ABDOMEN: Nontender. EXTREMITITES: No edema. Objective - Vital Signs Vital signs: Vital Signs Temp 99.0 F 07/19/24 07:50 Pulse 98 07/19/24 07:50 Resp 16 07/19/24 07:50 BP 160/79 07/19/24 07:50 Pulse Ox 95 07/19/24 07:50 FiO2 Intake & Output 07/18/24 07/19/24 07/19/24 18:59 06:59 18:59 Intake Total 725 Output Total 1575 2400 Balance -850 -2400 Intake: Oral 725 Output: Urine 1575 2400 Other: Voiding Method External Catheter Indwelling Catheter - Labs CBC & Chem 7: 07/19/24 03:31 07/19/24 03:31 Labs: Abnormal Lab Results - Last 24 Hours (Table) 07/18/24 07/18/24 07/19/24 Range/Units 06:26 17:13 03:31 WBC (4.50-10.00) X 10*3/uL MPV (9.5-12.2) FL Immature Gran # (0.00-0.04) X 10*3/uL Neutrophils # (1.80-7.70) X 10*3/uL Lymphocytes # (0.90-5.00) X 10*3/uL Monocytes # (0.20-1.00) X 10*3/uL Eosinophils # (0.04-0.35) X 10*3/uL Sodium 120 L 122 L (137-145) mmol/L Chloride 88 L (96-109) mmol/L Carbon Dioxide 21.4 L (21.6-31.8) mmol/L Anion Gap 12.60 H (4.00-12.00) mmol/L Osmolality 260 L (275-295) mOsm/kg Calcium 8.3 L (8.7-10.3) mg/dL Total Bilirubin 1.6 H (0.3-1.2) mg/dL Total Protein 6.0 L (6.2-8.2) g/dL Albumin 3.7 L (3.8-4.9) g/dL 07/19/24 Range/Units 03:31 WBC 12.58 H (4.50-10.00) X 10*3/uL MPV 9.0 L (9.5-12.2) FL Immature Gran # 0.08 H (0.00-0.04) X 10*3/uL Neutrophils # 10.38 H (1.80-7.70) X 10*3/uL Lymphocytes # 0.84 L (0.90-5.00) X 10*3/uL Monocytes # 1.23 H (0.20-1.00) X 10*3/uL Eosinophils # 0.03 L (0.04-0.35) X 10*3/uL Sodium (137-145) mmol/L Chloride (96-109) mmol/L Carbon Dioxide (21.6-31.8) mmol/L Anion Gap (4.00-12.00) mmol/L Osmolality (275-295) mOsm/kg Calcium (8.7-10.3) mg/dL Total Bilirubin (0.3-1.2) mg/dL Total Protein (6.2-8.2) g/dL Albumin (3.8-4.9) g/dL Assessment and Plan Plan: Assessment: 1. Hyponatremia. Appears euvolemic. 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 No improvement with IV fluids. Sodium levels was 124 on admission and dropped down to 120 July 18, 2024 -122 today. TSH normal. Urine sodium 138 and urine osmolality 529. 2. Status post fall with left hip fracture. 3. Benign hypertension. Plan: Avoid thiazide diuretics. Avoid NSAIDs. Increase lisinopril dose to 20 mg twice daily. Hold for systolic blood pressure less than 120. Maintain fluid restriction. Add oral magnesium oxide. Repeat sodium level now. If sodium level not trending up, will repeat Samsca.
[2024-07-19] MEDS: MAGNESIUM OXIDE 400 MG TAB PO SCH (11:25)
--- NOTE | 2024-07-19 18:27 | P.PN ---
Progress Note - Text Progress Note Date: 07/19/24 - Chief Complaint Left femur fracture - History of Present Illness This is a very pleasant 79-year-old patient, follows Dr. Esther Pendleton. Chronic stable medical condition include hypertension, osteoarthritis. Patient had a prior history of esophageal stricture. It was dilated about [address] Dao. Of late patient is noticing some food sticking specially bread. Wants to go for dilatation again. In the past she has had obstructive sleep apnea did use CPAP. Has lost weight. No need for the same. Denies any cardiac history. Otherwise rather active. Patient occurred trip and fall with pain in the left hip area. July 18: Patient seen this afternoon. Daughter present. Patient does drink excessive water. Explaining his low sodium. He did so yesterday 2. This was discussed at length with the patient and daughter. Placed on fluid restriction. Serum muscularity came back low at 266. Fluid restriction 200 cc a day. I did inform Dr. Fitzgerald to hold off surgery today. Until cleared further by nep hrology. July 19: Sodium 122 and repeat 124 this afternoon. Surgery held for today. Discussed with patient. Some pain at the fracture site. Nephrology following. Active Medications Hydrocodone Bitart/Acetaminophen (Hydrocodone/Apap 5-325mg 1 Each Tab) 1 each PO Q4HR PRN PRN Reason: Moderate Pain (Scale 4 to 6) Hydrocodone Bitart/Acetaminophen (Hydrocodone/Apap 10-325mg 1 Each Tab) 1 each PO Q6H PRN PRN Reason: Pain Calcium Carbonate/Glycine (Calcium Carbonate 500 Mg Chewable) 500 mg PO AC-TID [facility] Last Admin: 07/19/24 16:59 Dose: 500 mg Cholecalciferol (Cholecalciferol 125 Mcg (5000 Iu) Tablet) 125 mcg PO DAILY [facility] Last Admin: 07/19/24 08:40 Dose: 125 mcg Docusate Sodium (Docusate 100 Mg Cap) 100 mg PO BID [facility] Last Admin: 07/19/24 08:39 Dose: 100 mg Enoxaparin Sodium (Enoxaparin 40 Mg/0.4 Ml Syringe) 40 mg SQ HS [facility] Last Admin: 07/18/24 20:01 Dose: Not Given Famotidine (Famotidine 20 Mg Tab) 20 mg PO BID [facility] Last Admin: 07/19/24 08:39 Dose: 20 mg Hydromorphone HCl (Hydromorphone 0.5 Mg/0.5 Ml Syringe) 0.5 mg IVP Q3HR PRN PRN Reason: Moderate Pain (Scale 4 to 6) Last Admin: 07/18/24 13:58 Dose: 0.5 mg Lisinopril (Lisinopril 20 Mg Tab) 20 mg PO BID [facility] Magnesium Oxide (Magnesium Oxide 400 Mg Tab) 400 mg PO DAILY [facility] Last Admin: 07/19/24 11:25 Dose: 400 mg Methocarbamol (Methocarbamol 750 Mg Tab) 750 mg PO QID [facility] Last Admin: 07/19/24 17:04 Dose: 750 mg Naloxone HCl (Naloxone 0.4 Mg/Ml 1 Ml Vial) 0.2 mg IV Q2M PRN PRN Reason: Opioid Reversal Ondansetron HCl (Ondansetron 4 Mg/2 Ml Vial) 4 mg IVP Q8HR PRN PRN Reason: Nausea And Vomiting Polyethylene Glycol (Polyethylene Glycol 3350 17 Gm Powd.Pack) 17 gm PO DAILY [facility] Last Admin: 07/19/24 08:40 Dose: Not Given Senna (Sennosides 8.6 Mg Tab) 8.6 mg PO BID PRN PRN Reason: Constipation Social history: . 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 Smoked in the remote past for about 10 years. Alcohol occasionally. Physical examination: VITAL SIGNS: 99, 98, 16, 160/79, 95% room air GENERAL: BMI 29.8, reclining bed awake EYES: Pupils equal. Conjunctiva melony l. HEENT: External appearance of nose and ears normal, oral cavity grossly normal. NECK: JVD not raised; masses not palpable. HEART: First and second heart sounds are normal; no edema. LUNGS: Respiratory rate normal; clear to auscultation. ABDOMEN: Soft, nontender, liver spleen not palpable, no masses palpable. PSYCH: Alert and oriented x3; mood and affect melony l. MUSCULOSKELETAL:No Clubbing/cyanosis;muscles-grossly intact. OA. Limited range of motion left hip left leg shortened and rotated externally INVESTIGATIONS, reviewed in the clinical context: July 19: White count 12.5 hemoglobin 14 platelets 199. Abnormal differential July 18: White count 12.9 hemoglobin 15 platelets 211 sodium 120 potassium 4.4 BUN 12 creatinine 0.62 July 17: White count 10 hemoglobin 14.2 platelets 217 sodium 124 potassium 4.5 BUN 8 creatinine 0.6. Serum osmolality 266 EKG tracing personally reviewed by me-normal sinus rhythm Chest x-ray film personally reviewed by me-some cardiomegaly. Left hip x-ray: Moderately displaced left femoral neck fracture with shortening Assessment plan: -Acute moderately displaced left femoral neck fracture secondary to fall with shortening. Rest. Pending surgical intervention by Dr. Fitzgerald pain control -Primary osteoarthritis Pain medication as needed -Abnormal CBC differential, with immature granulocytes, increased neutrophils, decreased lymphocytes increased monocytes and decrease eosinophils. Consult hematology -Severe hyponatremia., Hypoosmolar from excessive fluid intake: Slow to respond . Fluid restriction 1200 cc a day. Avoid tea coffee and free water. May have thick soups chicken broth etc. Follow-up with nephrology -Essential hypertension. Blood pressure currently elevated with some contribution from pain Increase lisinopril to 20 mg twice daily -Probable esophageal stricture. Patient is a Celeste will dilatation done about [address] Jailene Dao. Now again started to find food like bread getting stuck. Will need outpatient follow-up for the same. -Perioperative cardiovascular risk assessment. Patient normally is a fairly active. Has no cardiac or respiratory symptoms. Patient has a low to moderate risk for surgery. With no contraindications. Medical clearance pending nephrology clearance Dose of lisinopril increased. Fluid restriction to continue. Surgery postponed for today. Consult hematology for abnormal CBC differential Thank you Dr. Fitzgerald Past Medical History Past Medical History: GERD/Reflux, Sleep Apnea/CPAP/BIPAP Additional Past Medical History / Comment(s): Dysphagia. Hx CPAP use in past, none after wgt loss. History of Any Multi-Drug Resistant Organisms: None Reported Past Surgical History: Tonsillectomy Additional Past Surgical History / Comment(s): Rt hand surgery on little finger. Colonoscopy, EGD w/ dilation. Past Anesthesia/Blood Transfusion Reactions: No Reported Reaction Past Psychological History: No Psychological Hx Reported Past Alcohol Use History: Rare Past Drug Use History: None Reported
[2024-07-19] MEDS: SENNOSIDES-DOCUSATE SODIUM 1 EACH TAB PO SCH (21:23)
[2024-07-19] MEDS: lisinopriL 20 MG TAB PO SCH (21:23)
[2024-07-20 04:10] LABS: African American GFR (CKD) >90 (>60 ml/min/1.73 sqM); Anion Gap 7 mmol/L; Blood Urea Nitrogen 19 mg/dL (9-20); Calcium 8.9 mg/dL (8.4-10.2); Carbon Dioxide 21 mmol/L (22-30); Chloride 95 mmol/L (98-107); Glucose 106 mg/dL (74-99); Magnesium 1.9 mg/dL (1.6-2.3); Non-African American GFR(CKD) >90 (>60 ml/min/1.73 sqM); Sodium 123 mmol/L (137-145)
[2024-07-20 04:17] LABS: Potassium 4.5 mmol/L (3.5-5.1)
[2024-07-20] MEDS: SODIUM CHLORIDE TAB 1 GM TAB PO STA (06:01)
[2024-07-20] MEDS: TOLVAPTAN 15 MG TABLET PO ONE (06:01)
--- NOTE | 2024-07-20 07:01 | P.PN ---
Subjective Progress Note Date: 07/19/24 Principal diagnosis: Left hip pain Recent fall Left femoral neck fracture Patient seen and examined. Comfortably in bed. Daughter is at bedside. Informed patient and daughter that surgery has been postponed due to low sodium levels. Clearance for the procedure has not been received from nephrology, anesthesia, or medicine. Informed patient that we are hoping that we will be able to perform the surgery tomorrow 07/20/2024. All questions and concerns have been addressed. Objective - Vital Signs Vital signs: Vital Signs Temp 98.8 F 07/19/24 14:57 Pulse 104 H 07/19/24 14:57 Resp 18 07/19/24 14:57 BP 158/87 07/19/24 14:57 Pulse Ox 98 07/19/24 14:57 FiO2 Intake & Output 07/18/24 07/19/24 07/19/24 18:59 06:59 18:59 Intake Total 725 Output Total 1575 2400 1350 Balance -850 -2400 -1350 Intake: Oral 725 Output: Urine 1575 2400 1350 Uretheral (Brown) 300 Other: Voiding Method External Catheter Indwelling Catheter Indwelling Catheter - Exam Left lower extremity: Inspection: Negative for any open fractures, ecchymosis, significant erythema/ulcers. Sensation: Sensation is equal, symmetric, bilaterally intact throughout the upper and lower extremities Palpation: Tenderness to palpation over the left hip region Range of motion: Patient does have full range of motion bilateral upper and right lower extremities on exam, limited range of motion due to fracture and pain to the left lower extremity. Motor: Right: shoulder abduction 5/5, elbow flexors 5/5, wrist dorsiflexors 5/5. finger abductor 5/5, assistant restaurant general manager 5/5, hip flexor 5/5, knee flexor 5/5, ankle dorsiflexor 5/5, ankle plantarflexion 5/5 and extensor hallucis 5/5. Left: shoulder abduction 5/5, elbow flexors 5/5, wrist dorsiflexors 5/5. finger abductor 5/5, assistant restaurant general manager 5/5, hip flexor 3-/5, knee flexor 4/5, ankle dorsiflexor 4/5, ankle plantarflexion 4/5 and extensor hallucis 4/5. Special tests: Log roll maneuver of left lower extremity does reproduce pain into the left hip. Neurovascular: Radial pulse intact, 2+ bilaterally. Cap refill under 3 seconds in digits upper extremities. - Labs CBC & Chem 7: 07/19/24 03:31 07/20/24 03:23 Labs: Abnormal Lab Results - Last 24 Hours (Table) 07/18/24 07/19/24 07/19/24 Range/Units 06:26 03:31 03:31 WBC 12.58 H (4.50-10.00) X 10*3/uL MPV 9.0 L (9.5-12.2) FL Immature Gran # 0.08 H (0.00-0.04) X 10*3/uL Neutrophils # 10.38 H (1.80-7.70) X 10*3/uL Lymphocytes # 0.84 L (0.90-5.00) X 10*3/uL Monocytes # 1.23 H (0.20-1.00) X 10*3/uL Eosinophils # 0.03 L (0.04-0.35) X 10*3/uL Sodium 122 L (135-145) mmol/L Chloride 88 L (96-109) mmol/L Carbon Dioxide 21.4 L (21.6-31.8) mmol/L Anion Gap 12.60 H (4.00-12.00) mmol/L Osmolality 260 L (275-295) mOsm/kg Calcium 8.3 L (8.7-10.3) mg/dL Total Bilirubin 1.6 H (0.3-1.2) mg/dL Total Protein 6.0 L (6.2-8.2) g/dL Albumin 3.7 L (3.8-4.9) g/dL 07/19/24 07/19/24 Range/Units 11:03 16:37 WBC (4.50-10.00) X 10*3/uL MPV (9.5-12.2) FL Immature Gran # (0.00-0.04) X 10*3/uL Neutrophils # (1.80-7.70) X 10*3/uL Lymphocytes # (0.90-5.00) X 10*3/uL Monocytes # (0.20-1.00) X 10*3/uL Eosinophils # (0.04-0.35) X 10*3/uL Sodium 124 L 126 L (135-145) mmol/L Chloride (96-109) mmol/L Carbon Dioxide (21.6-31.8) mmol/L Anion Gap (4.00-12.00) mmol/L Osmolality (275-295) mOsm/kg Calcium (8.7-10.3) mg/dL Total Bilirubin (0.3-1.2) mg/dL Total Protein (6.2-8.2) g/dL Albumin (3.8-4.9) g/dL Assessment and Plan Assessment: Fall from standing Left femoral neck fracture Plan: -Awaiting surgical clearance from medicine, nephrology, and anesthesia for possible surgical intervention of a left hip hemiarthroplasty scheduled for later today. -Keep patient n.p.o. at this time -Nonweightbearing of the left lower extremity, patient to remain bedrest. -Continue with current pain regimen, utilize ice packs as needed.
--- NOTE | 2024-07-20 09:08 | P.PN ---
Subjective Progress Note Date: 07/20/24 Principal diagnosis: Left hip pain Recent fall Left femoral neck fracture Patient seen this morning. Patient is resting comfortably in bed. No new complaints. Patient to remain n.p.o. at this time, surgical procedure is scheduled for later this afternoon of a left hip hemiarthroplasty. Current sodium level is 123 with replacement provided at 6 AM this morning. Sodium l evel has been ordered for 10 AM this morning to be redrawn. Continue with current pain regimen. Objective - Vital Signs Vital signs: Vital Signs Temp 98.9 F 07/20/24 01:22 Pulse 100 07/20/24 01:22 Resp 16 07/20/24 01:22 BP 178/95 07/20/24 01:22 Pulse Ox 100 07/20/24 01:22 FiO2 Intake & Output 07/19/24 07/20/24 07/20/24 18:59 06:59 18:59 Intake Total 1080 Output Total 1800 450 Balance -720 -450 Intake: Oral 1080 Output: Urine 1800 450 Uretheral (Brown) 300 Other: Voiding Method Indwelling Catheter Indwelling Catheter - Exam Left lower extremity: Inspection: Negative for any open fractures, ecchymosis, significant erythema/ulcers. Sensation: Sensation is equal, symmetric, bilaterally intact throughout the upper and lower extremities Palpation: Tenderness to palpation over the left hip region Range of motion: Patient does have full range of motion bilateral upper and right lower extremities on exam, limited range of motion due to fracture and pain to the left lower extremity. Motor: Right: shoulder abduction 5/5, elbow flexors 5/5, wrist dorsiflexors 5/5. finger abductor 5/5, chain saw driver 5/5, hip flexor 5/5, knee flexor 5/5, ankle dorsiflexor 5/5, ankle plantarflexion 5/5 and extensor hallucis 5/5. Left: shoulder abduction 5/5, elbow flexors 5/5, wrist dorsiflexors 5/5. finger abductor 5/5, chain saw driver 5/5, hip flexor 3-/5, knee flexor 4/5, ankle dorsiflexor 4/5, ankle plantarflexion 4/5 and extensor hallucis 4/5. Special tests: Log roll maneuver of left lower extremity does reproduce pain into the left hip. Neurovascular: Radial pulse intact, 2+ bilaterally. Cap refill under 3 seconds in digits upper extremities. - Labs CBC & Chem 7: 07/19/24 03:31 07/20/24 03:23 Labs: Abnormal Lab Results - Last 24 Hours (Table) 07/19/24 07/19/24 07/19/24 Range/Units 03:31 03:31 11:03 WBC 12.58 H (4.50-10.00) X 10*3/uL MPV 9.0 L (9.5-12.2) FL Immature Gran # 0.08 H (0.00-0.04) X 10*3/uL Neutrophils # 10.38 H (1.80-7.70) X 10*3/uL Lymphocytes # 0.84 L (0.90-5.00) X 10*3/uL Monocytes # 1.23 H (0.20-1.00) X 10*3/uL Eosinophils # 0.03 L (0.04-0.35) X 10*3/uL Sodium 122 L 124 L (135-145) mmol/L Chloride 88 L (96-109) mmol/L Carbon Dioxide 21.4 L (21.6-31.8) mmol/L Anion Gap 12.60 H (4.00-12.00) mmol/L Creatinine (0.66-1.25) mg/dL Glucose (74-99) mg/dL Calcium 8.3 L (8.7-10.3) mg/dL Total Bilirubin 1.6 H (0.3-1.2) mg/dL Total Protein 6.0 L (6.2-8.2) g/dL Albumin 3.7 L (3.8-4.9) g/dL 07/19/24 07/20/24 Range/Units 16:37 03:23 WBC (4.50-10.00) X 10*3/uL MPV (9.5-12.2) FL Immature Gran # (0.00-0.04) X 10*3/uL Neutrophils # (1.80-7.70) X 10*3/uL Lymphocytes # (0.90-5.00) X 10*3/uL Monocytes # (0.20-1.00) X 10*3/uL Eosinophils # (0.04-0.35) X 10*3/uL Sodium 126 L 123 L (135-145) mmol/L Chloride 95 L (96-109) mmol/L Carbon Dioxide 21 L (21.6-31.8) mmol/L Anion Gap (4.00-12.00) mmol/L Creatinine 0.62 L (0.66-1.25) mg/dL Glucose 106 H (74-99) mg/dL Calcium (8.7-10.3) mg/dL Total Bilirubin (0.3-1.2) mg/dL Total Protein (6.2-8.2) g/dL Albumin (3.8-4.9) g/dL Assessment and Plan Assessment: Fall from standing Left femoral neck fracture Plan: -Awaiting surgical clearance from medicine, nephrology, and anesthesia for possible surgical intervention of a left hip hemiarthroplasty scheduled for later today. -Ordered timed Sodium level for 10am this morning. -Keep patient n.p.o. at this time -Nonweightbearing of the left lower extremity, patient to remain bedrest. -Continue with current pain regimen, utilize ice packs as needed.
[2024-07-20] MEDS: HYDROcodone/APAP 5-325MG 1 EACH TAB PO PRN (11:02)
--- NOTE | 2024-07-20 12:09 | P.PN ---
Subjective Patient is seen in follow-up for hyponatremia. Has Brown catheter. Nonoliguric. Sodium level 125. Oral intake is good. No vomiting or diarrhea. Vital signs are stable. General: No acute distress. HEENT: Head exam is unremarkable. LUNGS: No audible rhonchi or wheezes. HEART: Rate and Rhythm are regular. ABDOMEN: Nontender. EXTREMITITES: No edema. Objective - Vital Signs Vital signs: Vital Signs Temp 98.5 F 07/20/24 07:05 Pulse 98 07/20/24 07:05 Resp 16 07/20/24 07:05 BP 153/87 07/20/24 07:05 Pulse Ox 98 07/20/24 07:05 FiO2 Intake & Output 07/19/24 07/20/24 07/20/24 18:59 06:59 18:59 Intake Total 1080 Output Total 1800 450 Balance -720 -450 Intake: Oral 1080 Output: Urine 1800 450 Uretheral (Brown) 300 Other: Voiding Method Indwelling Catheter Indwelling Catheter Indwelling Catheter - Labs CBC & Chem 7: 07/19/24 03:31 07/20/24 09:35 Labs: Abnormal Lab Results - Last 24 Hours (Table) 07/19/24 07/20/24 07/20/24 Range/Units 16:37 03:23 09:35 Sodium 126 L 123 L 125 L (137-145) mmol/L Chloride 95 L (98-107) mmol/L Carbon Dioxide 21 L (22-30) mmol/L Creatinine 0.62 L (0.66-1.25) mg/dL Glucose 106 H (74-99) mg/dL Assessment and Plan Plan: Assessment: 1. Hyponatremia. Appears euvolemic. 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 No improvement with IV fluids. Sodium levels was 124 on admission and dropped down to 120 July 18, 2024 -125 today. TSH normal. Urine sodium 138 and urine osmolality 529. 2. Status post fall with left hip fracture. Surgery pending. 3. Benign hypertension. Plan: Avoid thiazide diuretics. Avoid NSAIDs. Add hydralazine 50 mg twice daily. Hold for systolic blood pressure less than 120. Maintain fluid restriction. Received sodium chloride tab and Samsca this morning. Check PTH related peptide. Add urea 15 g twice daily.hy
[2024-07-20] MEDS: hydrALAZINE HCL 50 MG TAB PO SCH (13:58)
[2024-07-20] MEDS: UREA 15 GM POWD.PACK PO SCH (13:58)
--- NOTE | 2024-07-20 16:11 | P.CONS ---
History of Present Illness - Reason for Consult Consult date: 07/20/24 Leukocytosis, abnormal differential - History of Present Illness The patient is a 79-year-old white male, with overall well-controlled medical problems. He was admitted with an accidental fall due to tripping, and a left h ip fracture. The patient is being evaluated by orthopedic surgery. During his hospitalization, it was noted that his white blood cell count had increased from the 8000 range, to 12.58 today. Differential showed predominant neutrophils, but there was some minor monocytosis and lymphopenia, as well as a small fraction of immature granulocytes noted. Consult was therefore placed for further evaluation and recommendations He denied any prior history of blood related problems or malignancy. He denied any B symptoms. No history of any chronic inflammatory condition. No history of any obvious bleeding. Last colonoscopy was about 7 years ago. He does have an esophageal stricture, and has had that dilated few years ago. Review of Systems Constitutional: Denies chills, Denies fever Eyes: denies blurred vision, denies pain Ears: deny: decreased hearing, ear discharge, earache, tinnitus Ears, nose, mouth and throat: Denies headache, Denies sore throat Cardiovascular: Denies chest pain, Denies shortness of breath Respiratory: Denies cough Gastrointestinal: Reports as per HPI (Esophageal stricture) Genitourinary: Reports as per HPI Musculoskeletal: Reports as per HPI Musculoskeletal: left: hip pain, hip swelling Integumentary: Denies pruritus, Denies rash Neurological: Denies numbness, Denies weakness Psychiatric: Denies anxiety, Denies depression Endocrine: Denies fatigue, Denies weight change Hematologic/Lymphatic: Reports as per HPI Past Medical History Past Medical History: GERD/Reflux, Sleep Apnea/CPAP/BIPAP Additional Past Medical History / Comment(s): Dysphagia. Hx CPAP use in past, none after weight loss. History of Any Multi-Drug Resistant Organisms: None Reported Past Surgical History: Tonsillectomy Additional Past Surgical History / Comment(s): Rt hand surgery on little finger. Colonoscopy, EGD w/ dilation. Past Anesthesia/Blood Transfusion Reactions: No Reported Reaction Past Psychological History: No Psychological Hx Reported Smoking Status: Former smoker Past Alcohol Use History: Rare Additional Past Alcohol Use History / Comment(s): Smoked 10 years, quit est Past Drug Use History: None Reported - Past Family History Mother Family Medical History: No Reported History Medications and Allergies Home Medications Medication Instructions Recorded Confirmed Type Aspirin 81 mg PO DAILY 10/21/14 07/17/24 History Naproxen Sodium [Aleve] 220 mg PO BID PRN 05/30/18 07/17/24 History Aspirin 325 mg PO BID PRN 01/23/20 07/17/24 History lisinopriL [Zestril] 10 mg PO DAILY 07/17/24 07/17/24 History Allergies Allergy/AdvReac Type Severity Reaction Status Date / Time No Known Allergies Allergy Verified 07/17/24 15:57 Physical Exam Vitals: Vital Signs Temp Pulse Resp BP Pulse Ox 07/20/24 15:00 98.5 F 100 17 119/69 97 07/20/24 07:05 98.5 F 98 16 153/87 98 07/20/24 01:22 98.9 F 100 16 178/95 100 07/19/24 18:56 99.0 F 78 18 153/85 97 Intake and Output 07/20/24 07/20/24 07/20/24 06:59 14:59 22:59 Output Total 450 Balance -450 Output: Urine 450 Other: Voiding Method Indwelling Catheter - Constitutional General appearance: no acute distress - EENT Eyes: EOMI, PERRLA ENT: hearing grossly normal, normal oropharynx - Neck Neck: no lymphadenopathy Thyroid: negative: normal size - Respiratory Respiratory: bilateral: CTA - Cardiovascular Rhythm: regular Heart sounds: normal: S1, S2 - Gastrointestinal General gastrointestinal: normal bowel sounds, soft - Integumentary Integumentary: normal - Neurologic Neurologic: CNII-XII intact - Musculoskeletal Decreased range of motion left hip due to fracture - Psychiatric Psychiatric: A&O x's 3, appropriate affect Results CBC & Chem 7: 07/19/24 03:31 07/20/24 09:35 Labs: Abnormal Lab Results - Last 24 Hours (Table) 07/19/24 07/20/24 07/20/24 Range/Units 16:37 03:23 09:35 Sodium 126 L 123 L 125 L (137-145) mmol/L Chloride 95 L (98-107) mmol/L Carbon Dioxide 21 L (22-30) mmol/L Creatinine 0.62 L (0.66-1.25) mg/dL Glucose 106 H (74-99) mg/dL Comments: Hip/pelvis x-ray report reviewed Chest x-ray: report reviewed Assessment and Plan (1) Leukocytosis Narrative/Plan: The patient had an acute increase in white blood cells, to a fairly mild degree, during this admission. The clinical picture is quite consistent with a mild reactive condition. While this is typically associated with neutrophilia, minor degrees of monocytosis, as well as immature granulocytosis can be seen, especially in older individuals. Mild lymphopenia is not significant, and can again be seen transiently in reactive conditions when there is increased transient production of phagocytic cells -Check labs to rule out any underlying condition, with iron studies, autoimmune inflammatory markers. -If negative, follow-up in the office in 3 to 4 months to check for normaliza tion. Current Visit: Yes Status: Acute Code(s): D72.829 - ELEVATED WHITE BLOOD CELL COUNT, UNSPECIFIED SNOMED Code(s): 400469242 Plan: Defer to the admitting service and other consultants for management of his presenting complaint.
--- NOTE | 2024-07-20 16:21 | P.PN ---
Progress Note - Text Progress Note Date: 07/20/24 - Chief Complaint Left femur fracture - History of Present Illness This is a very pleasant 79-year-old patient, follows Dr. Esther Pendleton. Chronic stable medical condition include hypertension, osteoarthritis. Patient had a prior history of esophageal stricture. It was dilated about [address] Dao. Of late patient is noticing some food sticking specially bread. Wants to go for dilatation again. In the past she has had obstructive sleep apnea did use CPAP. Has lost weight. No need for the same. Denies any cardiac history. Otherwise rather active. Patient occurred trip and fall with pain in the left hip area. July 18: Patient seen this afternoon. Daughter present. Patient does drink excessive water. Explaining his low sodium. He did so yesterday 2. This was discussed at length with the patient and daughter. Placed on fluid restriction. Serum muscularity came back low at 266. Fluid restriction 200 cc a day. I did inform Dr. Fitzgerald to hold off surgery today. Until cleared further by nep hrology. July 19: Sodium 122 and repeat 124 this afternoon. Surgery held for today. Discussed with patient. Some pain at the fracture site. Nephrology following. July 20: Patient seen earlier today. Sodium 125. Spoke to NAHED Gandhi from Ortho. Dr. Hendricks from nephrology has cleared the patient to proceed for surgery later today. Patient be given Samsca and urea per nephrology. For his sodium. Active Medications Hydrocodone Bitart/Acetaminophen (Hydrocodone/Apap 5-325mg 1 Each Tab) 1 each PO Q4HR PRN PRN Reason: Moderate Pain (Scale 4 to 6) Last Admin: 07/20/24 11:02 Dose: 1 each Hydrocodone Bitart/Acetaminophen (Hydrocodone/Apap 10-325mg 1 Each Tab) 1 each PO Q6H PRN PRN Reason: Pain Calcium Carbonate/Glycine (Calcium Carbonate 500 Mg Chewable) 500 mg PO AC-TID [facility] Last Admin: 07/20/24 13:58 Dose: 500 mg Cholecalciferol (Cholecalciferol 125 Mcg (5000 Iu) Tablet) 125 mcg PO DAILY [facility] Last Admin: 07/20/24 08:25 Dose: 125 mcg Enoxaparin Sodium (Enoxaparin 40 Mg/0.4 Ml Syringe) 40 mg SQ HS [facility] Last Admin: 07/19/24 21:23 Dose: 40 mg Famotidine (Famotidine 20 Mg Tab) 20 mg PO BID [facility] Last Admin: 07/20/24 08:25 Dose: 20 mg Hydralazine HCl (Hydralazine Hcl 50 Mg Tab) 50 mg PO BID [facility] Last Admin: 07/20/24 13:58 Dose: 50 mg Hydromorphone HCl (Hydromorphone 0.5 Mg/0.5 Ml Syringe) 0.5 mg IVP Q3HR PRN PRN Reason: Moderate Pain (Scale 4 to 6) Last Admin: 07/18/24 13:58 Dose: 0.5 mg Lisinopril (Lisinopril 20 Mg Tab) 20 mg PO BID [facility] Last Admin: 07/20/24 08:25 Dose: 20 mg Magnesium Oxide (Magnesium Oxide 400 Mg Tab) 400 mg PO DAILY [facility] Last Admin: 07/20/24 11:14 Dose: Not Given Methocarbamol (Methocarbamol 750 Mg Tab) 750 mg PO QID [facility] Last Admin: 07/20/24 13:58 Dose: 750 mg Naloxone HCl (Naloxone 0.4 Mg/Ml 1 Ml Vial) 0.2 mg IV Q2M PRN PRN Reason: Opioid Reversal Ondansetron HCl (Ondansetron 4 Mg/2 Ml Vial) 4 mg IVP Q8HR PRN PRN Reason: Nausea And Vomiting Polyethylene Glycol (Polyethylene Glycol 3350 17 Gm Powd.Pack) 17 gm PO DAILY [facility] Last Admin: 07/20/24 08:25 Dose: 17 gm Senna (Sennosides 8.6 Mg Tab) 8.6 mg PO BID PRN PRN Reason: Constipation Senna/Docusate Sodium (Sennosides-Docusate Sodium 1 Each Tab) 2 each PO HS [facility] Last Admin: 07/19/24 21:23 Dose: 2 each Urea (Urea 15 Gm Powd.Pack) 15 gm PO BID [facility] Last Admin: 07/20/24 13:58 Dose: 15 gm Social history: . 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 Smoked in the remote past for about 10 years. Alcohol occasionally. Physical examination: VITAL SIGNS: 8, 16, 153 of 87, 98% room air GENERAL: BMI 29.8, in bed EYES: Pupils equal. Conjunctiva melony l. HEENT: External appearance of nose and ears normal, oral cavity grossly normal. NECK: JVD not raised; masses not palpable. HEART: First and second heart sounds are normal; no edema. LUNGS: Respiratory rate normal; clear to auscultation. ABDOMEN: Soft, nontender, liver spleen not palpable, no masses palpable. PSYCH: Alert and oriented x3; mood and affect melony l. MUSCULOSKELETAL:No Clubbing/cyanosis;muscles-grossly intact. OA. Limited range of motion left hip left leg shortened and rotated externally INVESTIGATIONS, reviewed in the clinical context: July 20: Sodium 125 potassium 4.5 BUN 19 creatinine 0.62 July 19: White count 12.5 hemoglobin 14 platelets 199. Abnormal differe ntial July 18: White count 12.9 hemoglobin 15 platelets 211 sodium 120 potassium 4.4 BUN 12 creatinine 0.62 July 17: White count 10 hemoglobin 14.2 platelets 217 sodium 124 potassium 4.5 BUN 8 creatinine 0.6. Serum osmolality 266 EKG tracing personally reviewed by me-normal sinus rhythm Chest x-ray film personally reviewed by me-some cardiomegaly. Left hip x-ray: Moderately displaced left femoral neck fracture with shortening Assessment plan: -Acute moderately displaced left femoral neck fracture secondary to fall with shortening. Rest. Pending surgical intervention by Dr. Fitzgerald later today. -Primary osteoarthritis Pain medication as needed -Abnormal CBC differential, with immature granulocytes, increased neutrophils, decreased lymphocytes increased monocytes and decrease eosinophils. Dr. Heller from hematology consulted -Severe hyponatremia., Hypoosmolar from excessive fluid intake: Slow to respond . Fluid restriction 1200 cc a day. Avoid tea coffee and free water. May have thick soups chicken broth etc. Nephrology following Samsca and urea given -Essential hypertension. Uncontrolled Lisinopril 20 mg twice daily. Hydralazine 50 mg twice daily added -Probable esophageal stricture. Patient is a Celeste will dilatation done about [address] Jailene Dao. Now again started to find food like bread getting stuck. Will need outpatient follow-up for the same. -Perioperative cardiovascular risk assessment. Patient normally is a fairly active. Has no cardiac or respiratory symptoms. Patient has a low to moderate risk for surgery. With no contraindications. Cleared by nephrology today for surgery. For blood pressure hydralazine added. Samsca and urea given for low sodium. Patient cleared by nephrology to proceed for surgery. Earlier discussed with patient and daughter. Thank you Dr. Fitzgerald Past Medical History Past Medical History: GERD/Reflux, Sleep Apnea/CPAP/BIPAP Additional Past Medical History / Comment(s): Dysphagia. Hx CPAP use in past, none after wgt loss. History of Any Multi-Drug Resistant Organisms: None Reported Past Surgical History: Tonsillectomy Additional Past Surgical History / Comment(s): Rt hand surgery on little finger. Colonoscopy, EGD w/ dilation. Past Anesthesia/Blood Transfusion Reactions: No Reported Reaction Past Psychological History: No Psychological Hx Reported Past Alcohol Use History: Rare Past Drug Use History: None Reported
[2024-07-20] MEDS ORDERED: NALOXONE 0.4 MG/ML 1 ML VIAL IV PRN (19:17)
--- NOTE | 2024-07-20 19:43 | P.PN ---
Progress Note - Text Progress Note Date: 07/20/24 patient seen and evaluated in preoperative area discussed risks and benefits again with the procedure On board with this. He understands worsens willing assume them. Rediscuss surgical options. The patient is comfortable with them. At this time we will proceed with the procedure discussed case with nephrology as well as anesthesia patient is stable to proceed.
[2024-07-20] MEDS ORDERED: fentaNYL (PF) 50 MCG/ML 2 ML AMP ONE (19:45)
[2024-07-20] MEDS ORDERED: SUCCINYLCHOLINE CHLORIDE 200 MG/10 ML VIAL IV ONE (19:45)
[2024-07-20] MEDS ORDERED: ROCURONIUM 10 MG/ML (5 ML VIAL) IV ONE (19:45)
[2024-07-20] MEDS ORDERED: NEOSTIGMINE 1 MG/ML 10 ML VIAL ONE (19:45)
[2024-07-20] MEDS ORDERED: ceFAZolin 1 GM/50 ML BAG (PMX) ONE (19:45)
[2024-07-20] MEDS ORDERED: PROPOFOL 10 MG/ML 20 ML VIAL IV ONE (19:45)
[2024-07-20] MEDS ORDERED: GLYCOPYRROLATE 0.2 MG/ML 2 ML VIAL ONE (19:45)
[2024-07-20] MEDS ORDERED: PHENYLEPHRINE-0.9% NACL SYG 1,000 MCG/10 ML SYRINGE ONE (19:45)
[2024-07-20] MEDS ORDERED: LIDOCAINE 1% INJ 10MG/ML (20 ML MDV) ONE (19:45)
[2024-07-20] MEDS ORDERED: TRANEXAMIC 1,000 MG/100ML-NACL PREMIX BAG ONE (19:45)
[2024-07-20] MEDS: SODIUM CHLORIDE 0.9% 1,000 ML IV ONE ×2 (19:50→21:41)
[2024-07-20] MEDS: SODIUM CHLORIDE 0.9% 100 ML with ceFAZolin 2,000 MG IV ONE (20:10)
[2024-07-20] MEDS: ceFAZolin 3,000 MG in SODIUM CHLORIDE 0.9% IRRIGATIO 3,000 ML IRRIGATION ONE (20:24)
--- NOTE | 2024-07-21 00:14 | XR ---
EXAM: XR Left Hip With Pelvis When Performed, 1 View CLINICAL HISTORY: ITS.REASON XR Reason: Status post hip surgery, assess surgical alignment TECHNIQUE: Frontal view of the left hip with pelvis when performed. COMPARISON: Plain film 07/17/2024. FINDINGS: Bones/joints: Total left hip prosthesis is noted in place and are normal anatomic position. Moderate osteoarthritic changes left sacral iliac joint. No acute fracture. No dislocation. Soft tissues: Soft tissue swelling. Other findings: Postsurgical changes. IMPRESSION: 1. Total left hip prosthesis is noted in place and are normal anatomic position. 2. Postsurgical changes. 3. Soft tissue swelling.
[2024-07-21 02:27] LABS: Iron 30 UG/DL (65-175); Rheumatoid Factor, Qnt <15 IU/mL (0-15); Total Iron Binding Capacity 297 UG/DL (228-460)
--- NOTE | 2024-07-21 09:42 | P.PN ---
Subjective Progress Note Date: 07/21/24 Principal diagnosis: Left hip pain Recent fall Left femoral neck fracture Patient seen and examined this morning. Patient is resting comfortably in bed with A-frame pillow in place between his lower extremities. Patient does report that his pain is managed on current regimen. He is utilizing ice packs to the left hip. Surgical incision to the left hip, dressing is clean dry and intact. Informed patient that physical therapy will be in to work with him today, staff may get patient up to chair as tolerated. Jameson catheter may be discontinued once patient is up and about. Continue to encourage patient to utilize incentive spirometer while awake. No acute concerns at this time. Objective - Vital Signs Vital signs: Vital Signs Temp 97.6 F 07/21/24 07:05 Pulse 95 07/21/24 07:05 Resp 16 07/21/24 07:05 BP 144/67 07/21/24 07:05 Pulse Ox 97 07/21/24 07:05 FiO2 Intake & Output 07/20/24 07/21/24 07/21/24 18:59 06:59 18:59 Intake Total 1101 Output Total 800 700 Balance -800 401 Weight 97.069 kg Intake: IV 1101 Output: Urine 800 550 Estimated Blood Loss 150 Other: Voiding Method Indwelling Catheter - Exam Left lower extremity: Inspection: Surgical incision to the left hip, dressing is clean dry and intact. Sensation: Sensation is equal, symmetric, bilaterally intact throughout the upper and lower extremities Palpation: Tenderness to palpation of the left hip around incision site. Range of motion: Patient does have full range of motion bilateral upper and right lower extremities on exam, limited range of motion due to surgical procedure. Motor: Right: shoulder abduction 5/5, elbow flexors 5/5, wrist dorsiflexors 5/5. finger abductor 5/5, splitter operator 5/5, hip flexor 5/5, knee flexor 5/5, ankle dorsiflexor 5/5, ankle plantarflexion 5/5 and extensor hallucis 5/5. Left: shoulder abduction 5/5, elbow flexors 5/5, wrist dorsiflexors 5/5. finger abductor 5/5, splitter operator 5/5, hip flexor 4-/5, knee flexor 4/5, ankle dorsiflexor 4/5, ankle plantarflexion 4/5 and extensor hallucis 4/5. Special tests: Log roll maneuver of left lower extremity does reproduce pain into the left hip. Neurovascular: Radial pulse intact, 2+ bilaterally. Cap refill under 3 seconds in digits upper extremities. - Labs CBC & Chem 7: 07/19/24 03:31 07/20/24 09:35 Labs: Abnormal Lab Results - Last 24 Hours (Table) 07/20/24 07/20/24 Range/Units 09:35 17:47 Sodium 125 L (137-145) mmol/L Iron 30 L (65-175) UG/DL % Saturation 10.10 L (15.00-50.00) Assessment and Plan Assessment: Postop day 1: Left hip hemiarthroplasty Plan: -Appreciate desktop support consultant and team management. -Activity: Ambulate QID, OOB all meals, up and about, limit lifting bending twisting to less than 5 lbs. Use walker or cane if needed for stability. -Daily PT/OT, increase ambulation strength and balance. -Pain control: Adequate at this time -Meds: reviewed -GI ppx: senna, Miralax -DC jameson when up and about, bedside commode if needed -DVT PPX: Lovenox -Hygiene: Maintain incision clean and dry. May change dressing as needed, please document in notes if performed. -Encourage IS 10x/hr -Dispo: Anticipate discharge to [facility] on 07/23/24 *I reviewed and discussed this case with my attending Dr. Fitzgerald, whom has reviewed this chart and films and is in agreement with assessment and plan of care as outlined above. I have personally seen and examined the patient, performed the documentation and the assessment and plan as written. Number of minutes spent on the visit: 20m.
--- NOTE | 2024-07-21 10:13 | P.PN ---
Subjective Patient is seen in follow-up for hyponatremia. Has Brown catheter. Nonoliguric. Sodium level 125 yesterday. Oral intake is good. No vomiting or diarrhea. Vital signs are stable. General: No acute distress. HEENT: Head exam is unremarkable. LUNGS: No audible rhonchi or wheezes. HEART: Rate and Rhythm are regular. ABDOMEN: Nontender. EXTREMITITES: No edema. Objective - Vital Signs Vital signs: Vital Signs Temp 97.6 F 07/21/24 07:05 Pulse 95 07/21/24 07:05 Resp 16 07/21/24 07:05 BP 144/67 07/21/24 07:05 Pulse Ox 97 07/21/24 07:05 FiO2 Intake & Output 07/20/24 07/21/24 07/21/24 18:59 06:59 18:59 Intake Total 1101 Output Total 800 700 Balance -800 401 Weight 97.069 kg Intake: IV 1101 Output: Urine 800 550 Estimated Blood Loss 150 Other: Voiding Method Indwelling Catheter - Labs CBC & Chem 7: 07/19/24 03:31 07/20/24 09:35 Labs: Abnormal Lab Results - Last 24 Hours (Table) 07/20/24 Range/Units 17:47 Iron 30 L (65-175) UG/DL % Saturation 10.10 L (15.00-50.00) Assessment and Plan Plan: Assessment: 1. Hyponatremia. Appears euvolemic. 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 No improvement with IV fluids. Sodium levels was 124 on admission and dropped down to 120 July 18, 2024 -125 yesterday. TSH normal. Urine sodium 138 and urine osmolality 529. 2. Status post fall with left hip fracture. Status post left hip hemiarthroplasty July 20, 2024. 3. Benign hypertension. Plan: Avoid thiazide diuretics. Avoid NSAIDs. Hold hydralazine for systolic blood pressure less than 120. Maintain fluid restriction. Follow-up PTH related peptide. Maintain urea. Encouraged oral intake. Morning labs pending.
[2024-07-21 11:40] LABS: Basophils # (A) 0.04 X 10*3/uL (0.00-0.10); Basophils % (A) 0.2 %; Eosinophils # (A) 0.01 X 10*3/uL (0.04-0.35); Eosinophils % (A) 0.1 %; HCT 43.1 % (39.6-50.0); HGB 14.5 g/dL (13.0-17.0); Lymphocytes # (A) 0.91 X 10*3/uL (0.90-5.00); Lymphocytes % (A) 5.6 %; MCH 29.5 pg (27.0-32.0); MCHC 33.6 g/dL (32.0-37.0); MCV 87.8 FL (80.0-97.0); Mean Platelet Volume 9.5 FL (9.5-12.2); Monocytes # (A) 1.86 X 10*3/uL (0.20-1.00); Monocytes % (A) 11.5 %; NRBC Per 100 WBC 0 X 10*3/uL (0.00-0.01); Neutrophils # (A) 13.29 X 10*3/uL (1.80-7.70); Neutrophils % (A) 81.9 %; Platelet Count 233 X 10*3/uL (140-440); RBC 4.91 X 10*6/uL (4.40-5.60); RDW 13.2 % (11.5-14.5); WBC 16.22 X 10*3/uL (4.50-10.00)
[2024-07-21 11:47] LABS: BUN/Creat Ratio 44.44 Ratio (12.00-20.00); Calcium 8.7 mg/dL (8.7-10.3); Carbon Dioxide 25.6 mmol/L (21.6-31.8); Chloride 95 mmol/L (96-109); Glucose 122 mg/dL (70-110); Potassium 5.3 mmol/L (3.5-5.5); Sodium 132 mmol/L (135-145)
--- NOTE | 2024-07-21 13:30 | P.PN ---
Subjective Progress Note Date: 07/21/24 This is a very pleasant 79-year-old patient, follows Dr. Esther Pendleton. Chronic stable medical condition include hypertension, osteoarthritis. Patient had a prior history of esophageal stricture. It was dilated about [address] Dao. Of late patient is noticing some food sticking specially bread. Wants to go for dilatation again. In the past she has had obstructive sleep apnea did use CPAP. Has lost weight. No need for the same. Denies any cardiac history. Otherwise rather active. Patient occurred trip and fall with pain in the left hip area. July 18: Patient seen this afternoon. Daughter present. Patient does drink excessive water. Explaining his low sodium. He did so yesterday 2. This was discussed at length with the patient and daughter. Placed on fluid restriction. Serum muscularity came back low at 266. Fluid restriction 200 cc a day. I did inform Dr. Fitzgerald to hold off surgery today. Until cleared further by nephrology. July 19: Sodium 122 and repeat 124 this afternoon. Surgery held for today. Discussed with patient. Some pain at the fracture site. Nephrology following. July 20: Patient seen earlier today. Sodium 125. Spoke to NAHED Gandhi from Ortho. Dr. Hendricks from nephrology has cleared the patient to proceed for marie colten later today. Patient be given Samsca and urea per nephrology. For his sodium. 07/21. Patient seen and examined. States left hip pain has improved. Denies any lethargy or weakness REVIEW OF SYSTEMS: CONSTITUTIONAL: No fever, no malaise,. CARDIOVASCULAR: No chest pain, no palpitations, no syncope. PULMONARY: No shortness of breath, no cough, GASTROINTESTINAL: No diarrhea, no nausea, no vomiting, no abdominal pain. NEUROLOGICAL: No headaches, no weakness, PHYSICAL EXAMINATION: GENERAL: The patient is alert and oriented x3, not in any acute distress. Well developed, well nourished. HEENT: Pupils are round and equally reacting to light. EOMI. No scleral icterus. No conjunctival pallor. Normocephalic, atraumatic. No pharyngeal erythema. No thyromegaly. CARDIOVASCULAR: S1 and S2 present. No murmurs, rubs, or gallops. PULMONARY: Chest is clear to auscultation, no wheezing or crackles. ABDOMEN: Soft, nontender, nondistended, normoactive bowel sounds. No palpable organomegaly. MUSCULOSKELETAL: Left hip surgical incision seen EXTREMITIES: No cyanosis, clubbing, or pedal edema. NEUROLOGICAL: Gross neurological examination did not reveal any focal deficits. SKIN: No rashes. Assessment and plan -Acute moderately displaced left femoral neck fracture secondary to fall with shortening. Status post left hip arthroplasty Continue pain management per orthopedics Continue DVT prophylaxis per orthopedics Resume home meds PT and OT consulted -Primary osteoarthritis Pain medication as needed -Abnormal CBC differential, with immature granulocytes, increased neutrophils, decreased lymphocytes increased monocytes and decrease eosinophils. Dr. Heller from hematology consulted -Severe hyponatremia. Monitor BMP Continue fluid restriction Continue urea Avoid thiazide diuretics. Avoid NSAIDs. Nephrology consulted -Essential hypertension. Uncontrolled Lisinopril 20 mg twice daily. Hydralazine 50 mg twice daily added -Probable esophageal stricture. Patient is a Celeste will dilatation done about [address] Jailene Dao. Now again started to find food like bread getting stuck. Will need outpatient follow-up for the same. Labs and medication were reviewed.. Continue same treatment. Continue with sy mptomatic treatment. Resume home medication. Monitor labs and vitals. DVT and GI prophylaxis. Further recommendations as per clinical course of the patient Dictation was produced using [employer] dictation software. please excuse any grammatical, word or spelling errors. Objective - Vital Signs Vital signs: Vital Signs Temp 97.6 F 07/21/24 07:05 Pulse 95 07/21/24 07:05 Resp 16 07/21/24 07:05 BP 144/67 07/21/24 07:05 Pulse Ox 97 07/21/24 07:05 FiO2 Intake & Output 07/20/24 07/21/24 07/21/24 18:59 06:59 18:59 Intake Total 1101 Output Total 800 700 Balance -800 401 Weight 97.069 kg Intake: IV 1101 Output: Urine 800 550 Estimated Blood Loss 150 Other: Voiding Method Indwelling Catheter - Labs CBC & Chem 7: 07/21/24 03:28 07/21/24 03:28 Labs: Abnormal Lab Results - Last 24 Hours (Table) 07/20/24 Range/Units 17:47 Iron 30 L (65-175) UG/DL % Saturation 10.10 L (15.00-50.00)
--- NOTE | 2024-07-21 15:17 | P.OP ---
Date of Procedure: 07/20/24 Preoperative Diagnosis: 1. LEFT FEMORAL NECK FRACTURE, COMPLETE, DISPLACED 2. S/P FFS 3. HYPONATREMIA, CHRONIC 4. COMPLEX MEDICAL PATIENT Postoperative Diagnosis: 1. LEFT FEMORAL NECK FRACTURE, COMPLETE, DISPLACED 2. S/P FFS 3. HYPONATREMIA, CHRONIC 4. COMPLEX MEDICAL PATIENT Procedure(s) Performed: 1. LEFT HIP HEMIARTHROPLASTY POST APPROACH Implants: CABA AND NEPHEW 7 STEM 48 HEAD BIPOLAR 28 INNER STD NECK 0 HEAD Anesthesia: GETA Surgeon: Jeff Fitzgerald Television Audio Engineer #1: Isabela Farias (WAS PRESENT AND ASSISTED WITH ALL ASPECTS OF THE CASE FROM POSITION TO DRESSING PALCEMENT) Estimated Blood Loss (ml): 150 IV fluids (ml): 1,000 Urine output (ml): 300 Pathology: none sent Condition: stable Disposition: PACU Indications for Procedure: Abraham Castro is a 79-year-old male presenting for evaluation of sudden onset left hip pain, inability to ambulate after from standing. It was my pleasure to have seen and examined Abraham. In our visit today we have had a chance to go over subjective complaints, physical examination findings and treatments including the natural course history without intervention and various interventional options. His imaging demonstrates left femoral neck fracture complete and displaced. On physical exam, Abraham demonstrates pain with motion of left lower extremity, which is NV intact at this time. I have explained to the patient that this fracture needs stabilization. Based on the patients imaging, physical exam, and the rapid progression and disabling nature of her symptoms, at this time I recommend surgery in the form or a: Left hip hemiarthroplasty versus total hip arthroplasty I discussed the risk and benefits of this procedure at length with Abraham. Questions were invited and answered, and the patient wishes to proceed as outlined below. Currently, I am recommendin. Left hip hemiarthroplasty versus total hip arthroplasty Description of Procedure: Left Hip Hemiarthroplasty 15548 The patient was seen and examined in the preoperative area. All preoperative protocols were followed. Informed consent was obtained, risks and benefits of the procedure were discussed at length. Risks including bleeding infection damage to the surrounding tissue and risk of reoperation were discussed with the patient. Risk of anesthesia up to and including was discussed with the patient. These are outlined in the risk reviewed. They were willing to accept these risks and all of the risks of surgery. The patient was given a weight- based dose of antibiotics in the form of 2 g Ancef. The patient was seen and evaluated by the anesthesia team who deemed them fit for surgery. The site was marked, the patient was willing to proceed with the procedure. The patient was transferred to the operative suite by the Department of anesthesia. They were then drifted off to sleep by the department of anesthesia and spinal anesthesia was used. Once adequate anesthesia had been obtained the patient was carefully transferred to the operative bed and placed in the lateral decubitus position secured with posts with an axillary role and appropriate padding. All bony prominences were padded accordingly. SCDs were placed on the nonoperative lower extremities. Arms were well padded. The Left leg was exposed and 1015 placed around the site. Preoperative briefing was done with the operative team and everyone was ready for the procedure to start. The patient's left leg was then prepped and draped in the normal sterile fashion. Timeout was then performed and all parties in agreement with the procedure to be performed. Standard incision was marked for posterior approach to the hip. Skin incision made and dissection taken down to the TFL which was identified and split with its fibers. Charnley retractor placed and bursa identified along with vastus insertion and gluteus medius. Medius was protected and posterior short external rotators along with capsule and piriformis which were tagged, identified and released. Capsulotomy in an L shape was performed along the superior neck which allowed for dislocation of the fractured stump. Shoulder was palpated along with a Lesser trochanter and clean up cut made 1 cm superior to the LT. Once this was done retractors placed and the head was removed with a corkscrew and T handle. Once removed it was sized and a trial head was placed and had good suction fit. Attention was then turned to femoral preparation. Box osteotome was used to enter followed by canal finder and lateralizer. Rat tail then used to widen this. Sequential broaching was then performed until the desired size and fit. Once this was achieved a head and neck combo was trialed. Once reduced the hit was taken through a range of motion and was stable in all positions, had good motion and leg lengths were equal. The hip was then atraumatically dislocated and the braoch checked, it was stable and so final sizes selected. The wound, acetabulum and femoral canal were then irrigated copiously with pulse lavage and NSS. Canal and acetabulum inspected and were appropriate. Final implants were then confirmed and the femoral stem impacted into position and was stable. Bipolar head combo was then assembled and placed and impacted into position and tested and was stable. The hip was then reduced and taken through a ROM again and was stable and had good length. The wound was again irrigated. Posterior capsule was then stitched with ethibond suture and passed through three drill holes made in the posterior GT. These were then tightened and tied. The capsule was then oversewn with an ethibond stitch for tight closure. ROM showed good tension and good closure. Charnley removed and TFL repaired with #1 vicryl in running locking fashion. Deep subq closed with 0 Vicryl, Superficial with 2-0 vicryl and skin with rosalina. Wound edges approximated well. The wound was then cleaned and dressed sterrilly with Optifoam dressing. The patient was then transferred back to their hospital bed. They were awakened by the department of anesthesia having tolerated the procedure very well with no complications. Hip abduction pillow placed. The patient was then transported to the postoperative care unit in stable condition.
--- NOTE | 2024-07-22 08:48 | P.PN ---
Subjective Progress Note Date: 07/22/24 Principal diagnosis: Left hip pain Recent fall Left femoral neck fracture Patient seen and examined this morning. Patient is resting comfortably in bed. He does report that he worked with physical therapy yesterday and was able to stand at bedside and take a few steps. Patient states that he tolerated activity well. He states that he is looking forward to his recovery and going to rehab possibly tomorrow 07/23/2024. Patient states that he has had improvement of his left hip pain since the procedure. Jameson catheter may be discontinued today. Continue to encourage patient to increase his activity. No acute concerns. Objective - Vital Signs Vital signs: Vital Signs Temp 98.1 F 07/22/24 07:15 Pulse 96 07/22/24 07:15 Resp 16 07/22/24 07:15 BP 120/62 07/22/24 07:15 Pulse Ox 98 07/22/24 07:15 FiO2 Intake & Output 07/21/24 07/22/24 07/22/24 18:59 06:59 18:59 Output Total 425 Balance -425 Output: Urine 425 Other: Voiding Method Indwelling Catheter - Exam Left lower extremity: Inspection: Surgical incision to the left hip, dressing is clean dry and intact. Sensation: Sensation is equal, symmetric, bilaterally intact throughout the upper and lower extremities Palpation: Tenderness to palpation of the left hip around incision site. Range of motion: Patient does have full range of motion bilateral upper and right lower extremities on exam, limited range of motion due to surgical proced ure. Motor: Right: shoulder abduction 5/5, elbow flexors 5/5, wrist dorsiflexors 5/5. finger abductor 5/5, display specialist 5/5, hip flexor 5/5, knee flexor 5/5, ankle dorsiflexor 5/5, ankle plantarflexion 5/5 and extensor hallucis 5/5. Left: shoulder abduction 5/5, elbow flexors 5/5, wrist dorsiflexors 5/5. finger abductor 5/5, display specialist 5/5, hip flexor 4-/5, knee flexor 4/5, ankle dorsiflexor 4/5, ankle plantarflexion 4/5 and extensor hallucis 4/5. Special tests: Log roll maneuver of left lower extremity does reproduce pain into the left hip. Neurovascular: Radial pulse intact, 2+ bilaterally. Cap refill under 3 seconds in digits upper extremities. - Labs CBC & Chem 7: 07/21/24 03:28 07/21/24 03:28 Labs: Abnormal Lab Results - Last 24 Hours (Table) 07/21/24 07/21/24 Range/Units 03:28 03:28 WBC 16.22 H (4.50-10.00) X 10*3/uL Immature Gran # 0.11 H (0.00-0.04) X 10*3/uL Neutrophils # 13.29 H (1.80-7.70) X 10*3/uL Monocytes # 1.86 H (0.20-1.00) X 10*3/uL Eosinophils # 0.01 L (0.04-0.35) X 10*3/uL Sodium 132 L (135-145) mmol/L Chloride 95 L (96-109) mmol/L BUN 40.0 H (9.0-27.0) mg/dL BUN/Creatinine Ratio 44.44 H (12.00-20.00) Ratio Glucose 122 H (70-110) mg/dL Assessment and Plan Assessment: Postop day 2: Left hip hemiarthroplasty Plan: -Appreciate surgery consultant and team management. -Activity: Ambulate QID, OOB all meals, up and about, limit lifting bending twisting to less than 5 lbs. Use walker or cane if needed for stability. -Daily PT/OT, increase ambulation strength and balance. -Pain control: Adequate at this time -Meds: reviewed -GI ppx: senna, Miralax -DC jameson today. -DVT PPX: Lovenox -Hygiene: Maintain incision clean and dry. May change dressing as needed, please document in notes if performed. -Encourage IS 10x/hr -Dispo: Anticipate discharge to [facility] on 07/23/24 *I reviewed and discussed this case with my attending Dr. Fitzgerald, whom has reviewed this chart and films and is in agreement with assessment and plan of care as outlined above. I have personally seen and examined the patient, performed the documentation and the assessment and plan as written. Number of minutes spent on the visit: 20m.
--- NOTE | 2024-07-22 09:52 | P.PN ---
Subjective Patient is seen in follow-up for hyponatremia. Has Brown catheter. Nonoliguric. Sodium level 132 yesterday. Oral intake is fair. Feels nauseate d. No vomiting or diarrhea. Vital signs are stable. General: No acute distress. HEENT: Head exam is unremarkable. LUNGS: No audible rhonchi or wheezes. HEART: Rate and Rhythm are regular. ABDOMEN: Nontender. EXTREMITITES: No edema. Objective - Vital Signs Vital signs: Vital Signs Temp 98.1 F 07/22/24 07:15 Pulse 96 07/22/24 07:15 Resp 16 07/22/24 07:15 BP 120/62 07/22/24 07:15 Pulse Ox 98 07/22/24 07:15 FiO2 Intake & Output 07/21/24 07/22/24 07/22/24 18:59 06:59 18:59 Output Total 425 Balance -425 Output: Urine 425 Other: Voiding Method Indwelling Catheter - Labs CBC & Chem 7: 07/21/24 03:28 07/21/24 03:28 Labs: Abnormal Lab Results - Last 24 Hours (Table) 07/21/24 07/21/24 Range/Units 03:28 03:28 WBC 16.22 H (4.50-10.00) X 10*3/uL Immature Gran # 0.11 H (0.00-0.04) X 10*3/uL Neutrophils # 13.29 H (1.80-7.70) X 10*3/uL Monocytes # 1.86 H (0.20-1.00) X 10*3/uL Eosinophils # 0.01 L (0.04-0.35) X 10*3/uL Sodium 132 L (135-145) mmol/L Chloride 95 L (96-109) mmol/L BUN 40.0 H (9.0-27.0) mg/dL BUN/Creatinine Ratio 44.44 H (12.00-20.00) Ratio Glucose 122 H (70-110) mg/dL Assessment and Plan Plan: Assessment: 1. Hyponatremia. Appears euvolemic. 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 No improvement with IV fluids. Sodium levels was 124 on admission and dropped down to 120 July 18, 2024 -132 yesterday. TSH normal. Urine sodium 138 and urine osmolality 529. 2. Status post fall with left hip fracture. Status post left hip hemiarthroplasty July 20, 2024. 3. Benign hypertension. Controlled. Plan: Avoid thiazide diuretics. Avoid NSAIDs. Hold hydralazine for systolic blood pressure less than 120. Maintain fluid restriction. Follow-up PTH related peptide. Status post urea and Samsca this admission. Encouraged oral intake. Morning labs pending.
[2024-07-22 10:34] LABS: BUN/Creat Ratio 42.43 Ratio (12.00-20.00); Blood Urea Nitrogen 29.7 mg/dL (9.0-27.0); Calcium 8.6 mg/dL (8.7-10.3); Carbon Dioxide 23.3 mmol/L (21.6-31.8); Chloride 93 mmol/L (96-109); Glucose 116 mg/dL (70-110); Potassium 4.5 mmol/L (3.5-5.5); Sodium 127 mmol/L (135-145)
--- NOTE | 2024-07-22 13:07 | P.PN ---
Subjective Progress Note Date: 07/22/24 This is a very pleasant 79-year-old patient, follows Dr. Esther Pendleton. Chronic stable medical condition include hypertension, osteoarthritis. Patient had a prior history of esophageal stricture. It was dilated about [address] Dao. Of late patient is noticing some food sticking specially bread. Wants to go for dilatation again. In the past she has had obstructive sleep apnea did use CPAP. Has lost weight. No need for the same. Denies any cardiac history. Otherwise rather active. Patient occurred trip and fall with pain in the left hip area. July 18: Patient seen this afternoon. Daughter present. Patient does drink excessive water. Explaining his low sodium. He did so yesterday 2. This was discussed at length with the patient and daughter. Placed on fluid restriction. Serum muscularity came back low at 266. Fluid restriction 200 cc a day. I did inform Dr. Fitzgerald to hold off surgery today. Until cleared further by nephrology. July 19: Sodium 122 and repeat 124 this afternoon. Surgery held for today. Discussed with patient. Some pain at the fracture site. Nephrology following. July 20: Patient seen earlier today. Sodium 125. Spoke to NAHED Gandhi from Ortho. Dr. Hendricks from nephrology has cleared the patient to proceed for marie colten later today. Patient be given Samsca and urea per nephrology. For his sodium. 07/21. Patient seen and examined. States left hip pain has improved. Denies any lethargy or weakness 07/22. Patient seen and examined. Last sodium was 132. PT and OT recommend rehab. Denies any left hip pain REVIEW OF SYSTEMS: CONSTITUTIONAL: No fever, no malaise,. CARDIOVASCULAR: No chest pain, no palpitations, no syncope. PULMONARY: No shortness of breath, no cough, GASTROINTESTINAL: No diarrhea, no nausea, no vomiting, no abdominal pain. NEUROLOGICAL: No headaches, no weakness, PHYSICAL EXAMINATION: GENERAL: The patient is alert and oriented x3, not in any acute distress. Well developed, well nourished. HEENT: Pupils are round and equally reacting to light. EOMI. No scleral icterus. No conjunctival pallor. Normocephalic, atraumatic. No pharyngeal erythema. No thyromegaly. CARDIOVASCULAR: S1 and S2 present. No murmurs, rubs, or gallops. PULMONARY: Chest is clear to auscultation, no wheezing or crackles. ABDOMEN: Soft, nontender, nondistended, normoactive bowel sounds. No palpable organomegaly. MUSCULOSKELETAL: Left hip surgical incision seen EXTREMITIES: No cyanosis, clubbing, or pedal edema. NEUROLOGICAL: Gross neurological examination did not reveal any focal deficits. SKIN: No rashes. Assessment and plan -Acute moderately displaced left femoral neck fracture secondary to fall with shortening. Status post left hip arthroplasty Continue pain management per orthopedics Continue DVT prophylaxis per orthopedics PT and OT recommend rehab -Primary osteoarthritis Pain medication as needed -Abnormal CBC differential, with immature granulocytes, increased neutrophils, decreased lymphocytes increased monocytes and decrease eosinophils. Dr. Heller from hematology consulted -Severe hyponatremia. Monitor BMP Continue fluid restriction Continue urea Avoid thiazide diuretics. Avoid NSAIDs. Nephrology following -Essential hypertension. Uncontrolled Lisinopril 20 mg twice daily. Hydralazine 50 mg twice daily added -Probable esophageal stricture. Patient is a Celeste will dilatation done about [address] Jailene Dao. Now again started to find food like bread getting stuck. Will need outpatient follow-up for the same. Labs and medication were reviewed.. Continue same treatment. Continue with sy mptomatic treatment. Resume home medication. Monitor labs and vitals. DVT and GI prophylaxis. Further recommendations as per clinical course of the patient Dictation was produced using enVer[employer] dictation software. please excuse any grammatical, word or spelling errors. Objective - Vital Signs Vital signs: Vital Signs Temp 98.1 F 07/22/24 07:15 Pulse 96 07/22/24 07:15 Resp 16 07/22/24 07:15 BP 120/62 07/22/24 07:15 Pulse Ox 98 07/22/24 07:15 FiO2 Intake & Output 07/21/24 07/22/24 07/22/24 18:59 06:59 18:59 Output Total 425 Balance -425 Output: Urine 425 Other: Voiding Method Indwelling Catheter - Labs CBC & Chem 7: 07/21/24 03:28 07/22/24 06:06 Labs: Abnormal Lab Results - Last 24 Hours (Table) 07/21/24 07/21/24 Range/Units 03:28 03:28 WBC 16.22 H (4.50-10.00) X 10*3/uL Immature Gran # 0.11 H (0.00-0.04) X 10*3/uL Neutrophils # 13.29 H (1.80-7.70) X 10*3/uL Monocytes # 1.86 H (0.20-1.00) X 10*3/uL Eosinophils # 0.01 L (0.04-0.35) X 10*3/uL Sodium 132 L (135-145) mmol/L Chloride 95 L (96-109) mmol/L BUN 40.0 H (9.0-27.0) mg/dL BUN/Creatinine Ratio 44.44 H (12.00-20.00) Ratio Glucose 122 H (70-110) mg/dL
[2024-07-22] MEDS: UREA 15 GM POWD.PACK PO SCH (21:06)
[2024-07-23 07:29] VITALS: BP 119/70; PULSE 97; RESP 16; TEMP 98.6
[2024-07-23 08:41] LABS: Magnesium 2.2 mg/dL (1.5-2.4)
[2024-07-23 08:48] LABS: BUN/Creat Ratio 60.25 Ratio (12.00-20.00); Blood Urea Nitrogen 48.2 mg/dL (9.0-27.0); Calcium 8.5 mg/dL (8.7-10.3); Carbon Dioxide 21.6 mmol/L (21.6-31.8); Chloride 91 mmol/L (96-109); Glucose 107 mg/dL (70-110); Potassium 4.4 mmol/L (3.5-5.5); Sodium 124 mmol/L (135-145)
[2024-07-23 09:11] LABS: Basophils # (A) 0.03 X 10*3/uL (0.00-0.10); Basophils % (A) 0.2 %; Eosinophils # (A) 0.05 X 10*3/uL (0.04-0.35); Eosinophils % (A) 0.3 %; HCT 37.2 % (39.6-50.0); HGB 12.7 g/dL (13.0-17.0); Lymphocytes # (A) 1.09 X 10*3/uL (0.90-5.00); Lymphocytes % (A) 7.2 %; MCH 29.8 pg (27.0-32.0); MCHC 34.1 g/dL (32.0-37.0); MCV 87.3 FL (80.0-97.0); Mean Platelet Volume 9.8 FL (9.5-12.2); Monocytes # (A) 1.98 X 10*3/uL (0.20-1.00); NRBC Per 100 WBC 0 X 10*3/uL (0.00-0.01); Neutrophils # (A) 11.91 X 10*3/uL (1.80-7.70); Neutrophils % (A) 78.4 %; Platelet Count 227 X 10*3/uL (140-440); RBC 4.26 X 10*6/uL (4.40-5.60); RDW 13.2 % (11.5-14.5); WBC 15.19 X 10*3/uL (4.50-10.00)
--- NOTE | 2024-07-23 09:19 | P.DS ---
Providers Date of admission: 07/17/24 15:01 Expected date of discharge: 07/23/24 Attending physician: Jeff Fitzgerald DO Consults: 07/17/24 15:01 Consult Physician Urgent Consulting Provider: Yasir Deras Consult Reason/Comments: Medical management Do you want consulting provider notified?: Yes 07/18/24 11:22 Consult Physician Urgent Consulting Provider: Kimberly Encarnacion Consult Reason/Comments: hyponatremia Do you want consulting provider notified?: Yes 07/19/24 18:26 Consult Physician Routine Consulting Provider: Scottie Heller Consult Reason/Comments: Abnormal CBC differential Do you want consulting provider notified?: Yes Primary care physician: Esther Pendleton Hospital Course: Date of admission: 07/19/2024 Date of discharge: 07/23/2024 Admission diagnosis: Left hip femoral neck fracture Discharge diagnosis: Same Attending physician: Dr. Fitzgerald Surgical procedures: Left hip hemiarthroplasty Brief history: Patient is a 79-year-old male with a history of left hip femoral neck fracture status post fall. At this point patient has failed conservative treatment measures and has opted to proceed with a elective left hip hemiarthroplasty. Hospital course: Details of patient's surgery can be found in operative report. Patient tolerated the procedure well and was subsequently transported to orthopedic floor. Patient's orthopeidc and medical care was provided daily. Patient had daily laboratory tests performed for evaluation of overall blood counts. Patient had daily physical therapy to include strengthening range of motion as well as education with walker ambulation. Patient was treated with Lovenox for their postoperative DVT prophylaxis during their inpatient stay. Patient was noted to have a relatively uneventful postoperative course. Patient reported satisfactory pain control with oral pain medications by postoperative day 3. Patient showed satisfactory progress with physical therapy. Patient moved steadily through the program and had no difficulty meeting the goals by postoperative day 3. Given patient's otherwise satisfactory course and having met physical therapy goals, plan is to discharge patient to rehab on postoperative day 3. Discharge condition/disposition: Patient will be discharged to rehab in stable condition. Discharge medications: Instructions are given on resumption of patient's normal daily medications per primary care recommendation, in addition patient will be prescribed [place]; senna; Lovenox; Robaxin. Discharge instructions: 1. Wound care and infection precautions, keep incision dry and covered while showering, no lotions, creams, moisturizers. No soaking, tubs, pools, hottubs. Do not scrub over the incision. 2. Weight-bear as tolerated with walker / cane until follow-up. 3. Ice and elevate when necessary. Do not exceed 20 minutes per hour with ice pack. 4. Utilize compression sleeve until seen at first follow up appointment. 5. Visiting nursing care. 6. Home physical therapy. 7. Pain meds and anticoagulants per prescription. 8. Pain medication has potential to cause constipation. Increase oral fluid and fiber intake. Contact primary care provider if you have not had a bowel movement within 48 hours after discharge 9. No anti-inflammatory medication until discussed at first post operative visit, this including Motrin, Aleve, Mobic, Diclofenac. 10. Follow up in office at [address] Jeff Fitzgerald 11. Follow up with your primary care doctor 7-10 days after discharge. 12. Contact [facility] with any questions, . Assessment: Left hip femoral neck fracture Procedures: Left hip hemiarthroplasty Patient Condition at Discharge: Fair Plan - Discharge Summary New Discharge Prescriptions: New HYDROcodone/APAP 5-325MG [[place] 5-325] 1 tab PO Q6HR PRN #18 tab PRN Reason: Pain Enoxaparin [Lovenox] 40 mg SQ DAILY #28 each Sennosides/Docusate Sodium [Senna Plus 8.6-50 mg Softgel] 1 each PO DAILY #20 capsule methocarbamoL [Robaxin-750] 750 mg PO QID #28 tab No Action Aspirin 81 mg PO DAILY Naproxen Sodium [Aleve] 220 mg PO BID PRN PRN Reason: Pain Aspirin 325 mg PO BID PRN PRN Reason: Pain lisinopriL [Zestril] 10 mg PO DAILY Discharge Medication List Aspirin 81 mg PO DAILY 10/21/14 [History] Naproxen Sodium [Aleve] 220 mg PO BID PRN 05/30/18 [History] Aspirin 325 mg PO BID PRN 01/23/20 [History] lisinopriL [Zestril] 10 mg PO DAILY 07/17/24 [History] Enoxaparin [Lovenox] 40 mg SQ DAILY #28 each 07/23/24 [Rx] HYDROcodone/APAP 5-325MG [[place] 5-325] 1 tab PO Q6HR PRN #18 tab 07/23/24 [Rx] Sennosides/Docusate Sodium [Senna Plus 8.6-50 mg Softgel] 1 each PO DAILY #20 capsule 07/23/24 [Rx] methocarbamoL [Robaxin-750] 750 mg PO QID #28 tab 07/23/24 [Rx] Follow up Appointment(s)/Referral(s): Esther Pendleton DO [Primary Care Provider] - 1-2 days Activity/Diet/Wound Care/Special Instructions: Discharge instructions: 1. Wound care and infection precautions, keep incision dry and covered while showering, no lotions, creams, moisturizers. No soaking, tubs, pools, hottubs. Do not scrub over the incision. 2. Weight-bear as tolerated with walker / cane until follow-up. 3. Ice and elevate when necessary. Do not exceed 20 minutes per hour with ice pack. 4. Utilize compression sleeve until seen at first follow up appointment. 5. Visiting nursing care. 6. Home physical therapy. 7. Pain meds and anticoagulants per prescription. 8. Pain medication has potential to cause constipation. Increase oral fluid and fiber intake. Contact primary care provider if you have not had a bowel movement within 48 hours after discharge 9. No anti-inflammatory medication until discussed at first post operative visit, this including Motrin, Aleve, Mobic, Diclofenac. 10. Follow up in office at [address] Jeff Fitzgerald 11. Follow up with your primary care doctor 7-10 days after discharge. 12. Contact [facility] with any questions, . Discharge Disposition: TRANSFER TO SNF/ECF
--- NOTE | 2024-07-23 10:23 | P.PN ---
Subjective Patient is seen in follow-up for hyponatremia. Has Brown catheter. Nonoliguric. Sodium level down to 124. Oral intake is fair. Oral intake is f air. No vomiting or diarrhea. Vital signs are stable. General: No acute distress. HEENT: Head exam is unremarkable. LUNGS: No audible rhonchi or wheezes. HEART: Rate and Rhythm are regular. ABDOMEN: Nontender. EXTREMITITES: No edema. Objective - Vital Signs Vital signs: Vital Signs Temp 98.6 F 07/23/24 07:00 Pulse 97 07/23/24 07:00 Resp 16 07/23/24 07:00 BP 119/70 07/23/24 07:00 Pulse Ox 96 07/23/24 07:00 FiO2 Intake & Output 07/22/24 07/23/24 07/23/24 18:59 06:59 18:59 Output Total 550 Balance -550 Output: Urine 550 Uretheral (Brown) 550 Other: Voiding Method Indwelling Catheter Toilet Urinal # Voids 2 1 - Labs CBC & Chem 7: 07/23/24 02:50 07/23/24 02:50 Labs: Abnormal Lab Results - Last 24 Hours (Table) 07/22/24 07/23/24 07/23/24 Range/Units 06:06 02:50 02:50 WBC 15.19 H (4.50-10.00) X 10*3/uL RBC 4.26 L (4.40-5.60) X 10*6/uL Hgb 12.7 L (13.0-17.0) g/dL Hct 37.2 L (39.6-50.0) % Immature Gran # 0.13 H (0.00-0.04) X 10*3/uL Neutrophils # 11.91 H (1.80-7.70) X 10*3/uL Monocytes # 1.98 H (0.20-1.00) X 10*3/uL Sodium 127 L 124 L (135-145) mmol/L Chloride 93 L 91 L (96-109) mmol/L BUN 29.7 H 48.2 H (9.0-27.0) mg/dL BUN/Creatinine Ratio 42.43 H 60.25 H (12.00-20.00) Ratio Glucose 116 H (70-110) mg/dL Calcium 8.6 L 8.5 L (8.7-10.3) mg/dL Assessment and Plan Plan: Assessment: 1. Hyponatremia. Appears euvolemic. 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 No improvement with IV fluids. Sodium levels was 124 on admission and dropped down to 120 July 18, 2024 - improved to 132 and is now back to 124 today. TSH normal. Urine sodium 138 and urine osmolality 529. 2. Status post fall with left hip fracture. Status post left hip hemiarthroplasty July 20, 2024. 3. Benign hypertension. Controlled. Plan: Avoid thiazide diuretics. Avoid NSAIDs. Hold hydralazine for systolic blood pressure less than 120. Maintain fluid restriction. Follow-up PTH related peptide. Encouraged oral intake. Maintain urea. Repeat Samsca again today.
--- NOTE | 2024-07-23 10:56 | P.PN ---
Progress Note - Text Progress Note Date: 07/23/24 Diagnosis: Left hip femoral neck fracture Subjective: Patient was seen at bedside this morning sitting up in chair with dressing present over left hip on 4 S. Patient states that he is not having any left hip pain at this time this is well-controlled. He does mention intense spasms in both legs. He says he has been weightbearing as tolerated with walker and assistance as needed. He says he has been urinating on his own without issue. Patient says he is looking forward to going to rehab today. Objective: Surgical dressing appears to be clean, dry, intact over the left hip. Sensation is equal, symmetric, bilateral intact throughout the lower extremities. There is some fair amount of tenderness to palpation over the left hip near incision. Nontender on rest of exam. Patient does have fairly good range of motion in left lower extremity considering recent surgery. 4/5 in all major motor groups in bilateral upper and lower extremities. Negative Homans bilaterally. Radial pulse intact, 2+ bilaterally. DP pulses palpable. Assessment: Left hip femoral neck fracture -Postop day #3 status post left hip hemiarthroplasty Plan: 1. Left hip femoral neck fracture -patient stable bedside morning with dressing in place. Discharge summary has been signed and discharge to rehab today 2. Appreciate medical management 3. Pain management - Robaxin; [place]- 4. DVT prophylaxis -Lovenox 5. GI prophylaxis -senna 6. PT/OT -weight-bearing as tolerated with walker and assistance as needed 7. Encourage incentive spirometer use 8. Discharge planning -discharge to rehab today
[2024-07-23] MEDS: TOLVAPTAN 15 MG TABLET PO ONE (11:16)
--- NOTE | 2024-07-23 13:52 | P.PN ---
Subjective Progress Note Date: 07/23/24 This is a very pleasant 79-year-old patient, follows Dr. Esther Pendleton. Chronic stable medical condition include hypertension, osteoarthritis. Patient had a prior history of esophageal stricture. It was dilated about [address] Dao. Of late patient is noticing some food sticking specially bread. Wants to go for dilatation again. In the past she has had obstructive sleep apnea did use CPAP. Has lost weight. No need for the same. Denies any cardiac history. Otherwise rather active. Patient occurred trip and fall with pain in the left hip area. July 18: Patient seen this afternoon. Daughter present. Patient does drink excessive water. Explaining his low sodium. He did so yesterday 2. This was discussed at length with the patient and daughter. Placed on fluid restriction. Serum muscularity came back low at 266. Fluid restriction 200 cc a day. I did inform Dr. Fitzgerald to hold off surgery today. Until cleared further by nephrology. July 19: Sodium 122 and repeat 124 this afternoon. Surgery held for today. Discussed with patient. Some pain at the fracture site. Nephrology following. July 20: Patient seen earlier today. Sodium 125. Spoke to NAHED Gandhi from Ortho. Dr. Hendricks from nephrology has cleared the patient to proceed for marie colten later today. Patient be given Samsca and urea per nephrology. For his sodium. 07/21. Patient seen and examined. States left hip pain has improved. Denies any lethargy or weakness 07/22. Patient seen and examined. Last sodium was 132. PT and OT recommend rehab. Denies any left hip pain 07/23. Patient seen and examined. Nephrology recommend keeping patient on fluid restriction at discharge. Patient to follow-up outpatient with PCP REVIEW OF SYSTEMS: CONSTITUTIONAL: No fever, no malaise,. CARDIOVASCULAR: No chest pain, no palpitations, no syncope. PULMONARY: No shortness of breath, no cough, GASTROINTESTINAL: No diarrhea, no nausea, no vomiting, no abdominal pain. NEUROLOGICAL: No headaches, no weakness, PHYSICAL EXAMINATION: GENERAL: The patient is alert and oriented x3, not in any acute distress. Well developed, well nourished. HEENT: Pupils are round and equally reacting to light. EOMI. No scleral icterus. No conjunctival pallor. Normocephalic, atraumatic. No pharyngeal erythema. No thyromegaly. CARDIOVASCULAR: S1 and S2 present. No murmurs, rubs, or gallops. PULMONARY: Chest is clear to auscultation, no wheezing or crackles. ABDOMEN: Soft, nontender, nondistended, normoactive bowel sounds. No palpable organomegaly. MUSCULOSKELETAL: Left hip surgical incision seen EXTREMITIES: No cyanosis, clubbing, or pedal edema. NEUROLOGICAL: Gross neurological examination did not reveal any focal deficits. SKIN: No rashes. Assessment and plan -Acute moderately displaced left femoral neck fracture secondary to fall with shortening. Status post left hip arthroplasty Continue pain management per orthopedics Continue DVT prophylaxis per orthopedics PT and OT recommend rehab -Primary osteoarthritis Pain medication as needed -Abnormal CBC differential, with immature granulocytes, increased neutrophils, decreased lymphocytes increased monocytes and decrease eosinophils. Dr. Heller from hematology consulted -Severe hyponatremia. Monitor BMP Continue fluid restriction Continue urea Avoid thiazide diuretics. Avoid NSAIDs. Nephrology following -Essential hypertension. Uncontrolled Lisinopril 20 mg twice daily. Hydralazine 50 mg twice daily added -Probable esophageal stricture. Patient is a [place] will dilatation done about [address] Jailene Dao. Now again started to find food like bread getting stuck. Will need outpatient follow-up for the same. Labs and medication were reviewed.. Continue same treatment. Continue with symptomatic treatment. Resume home medication. Monitor labs and vitals. DVT and GI prophylaxis. Further recommendations as per clinical course of the patient Dictation was produced using [employer] dictation software. please excuse any grammatical, word or spelling errors. Objective - Vital Signs Vital signs: Vital Signs Temp 98.6 F 07/23/24 07:00 Pulse 97 07/23/24 07:00 Resp 16 07/23/24 07:00 BP 119/70 07/23/24 07:00 Pulse Ox 96 07/23/24 07:00 FiO2 Intake & Output 07/22/24 07/23/24 07/23/24 18:59 06:59 18:59 Output Total 550 300 Balance -550 -300 Output: Urine 550 300 Uretheral (Brown) 550 Other: Voiding Method Indwelling Catheter Toilet Urinal # Voids 2 1 - Labs CBC & Chem 7: 07/23/24 02:50 07/23/24 02:50 Labs: Abnormal Lab Results - Last 24 Hours (Table) 07/23/24 07/23/24 Range/Units 02:50 02:50 WBC 15.19 H (4.50-10.00) X 10*3/uL RBC 4.26 L (4.40-5.60) X 10*6/uL Hgb 12.7 L (13.0-17.0) g/dL Hct 37.2 L (39.6-50.0) % Immature Gran # 0.13 H (0.00-0.04) X 10*3/uL Neutrophils # 11.91 H (1.80-7.70) X 10*3/uL Monocytes # 1.98 H (0.20-1.00) X 10*3/uL Sodium 124 L (135-145) mmol/L Chloride 91 L (96-109) mmol/L BUN 48.2 H (9.0-27.0) mg/dL BUN/Creatinine Ratio 60.25 H (12.00-20.00) Ratio Calcium 8.5 L (8.7-10.3) mg/dL
== END 2024-07-23 14:02 | DRG 522 ==
LOC: EC 14:17 → 4SSUR 15:01
PROVIDERS: ADMIT Orthopaedic Surgery; ATTEND Orthopaedic Surgery
PROC: 0SRS01A Replacement of Left Hip Joint, Femoral Surface with Metal Synthetic Substitute, Uncemented, Open Approach (ICD-10-PCS; principal; 2024-07-20 10:25)
DX: S72.002A Fracture of unspecified part of neck of left femur, initial encounter for closed fracture (principal); E22.2 Syndrome of inappropriate secretion of antidiuretic hormone; K22.2 Esophageal obstruction; I10 Essential (primary) hypertension; M16.12 Unilateral primary osteoarthritis, left hip; W01.0XXA Fall on same level from slipping, tripping and stumbling without subsequent striking against object, initial encounter; Y92.015 Private garage of single-family (private) house as the place of occurrence of the external cause; Y99.8 Other external cause status; Z79.82 Long term (current) use of aspirin; Z79.899 Other long term (current) drug therapy; Z87.891 Personal history of nicotine dependence
CPT/HCPCS: 71045; 73501; 73502; 80048; 80053; 81003; 82728; 83540; 83550; 83735; 83930; 83935; 84295; 84300; 84443; 85025; 85610; 85652; 85730; 86038; 86431; 86850; 86900; 86901; 93005; 96372; 99285